=== PATIENT | female | born 1980 | race African-American/Black ===

== ENCOUNTER → 2016-09-12 | Day surgery (SDC) | payer BC ==
[~2016-09-12] MED LIST: ALBU8.5H6 INH; FLUT100D IH; FOLI1TAB16 PO; IV RINGERS,LACTATED 1000ML 1,000 ML IV SCH; LIDOCAINE 1% 1 ML SYRINGE. ID PRN; METF500T4 PO; MIDAZOLAM HCL/PF 2 MG/2 ML VIAL. IV PRN; MOME13HF IH; NABU750T PO; OMEP40CA5 PO; PROPOFOL 20 ML IV ONE; PROPOFOL 40 ML IV ONE; SERT50TA PO; TIOT18CA IH; VENTOLIN HFA18 GM INH; fentaNYL PF VIAL 100 MCG/2 ML VIAL IV PRN
--- NOTE | 2016-09-12 08:24 | PDOC1 ---
HISTORY & PHYSICAL H&P Jacoby Stevens 1980 07/25/2016 03:50 PM 04/09 [facility] PATIENTS [facility] [address] [place] [address]. [phone] Patient: Jacoby Stevens Date of : 1980 Date: 07/25/2016 3:50 PM Historian: self Visit Type: Office Visit This 35 year old female presents for Rectal bleeding and Upper respiratory Infection. History of Present Illness: 1. Rectal bleeding Quality: BRBPR w/ bowel movement, BRBPR w/out bowel movement and wipe-type. Pertinent negatives include abdominal distention, abdominal pain, bloating, change in bowel habits, constipation, diarrhea, nausea, rectal pain, vomiting and weight loss. Additional information: Had incomplete colonoscopy last time. 2. Upper respiratory Infection Patient c/o cough and sneezing for 3 days. Has been feeling tiredness and fatigue. INTAKE COMMENTS: Intake Comments: Nurses Notes: Pt is here today with complaints of Rectal bleeding, pt states the bleeding is heavy. she has to wear a Pad. pt says the bleeding started in the beginning of June pt goes on to say that she has had bloody stools this week as well, pt says she had bleeding for 2 weeks with clotting, pt states it had become so sever that she was seen in the [facility] to be checked out.Pt had EGD/COLONOSCOPY 2014 pt had hemorrhoids. PROBLEM LIST: Problem Description Onset Date Asthma 10/15/2012 Sickle cell trait 07/19/2016 Internal hemorrhoid 02/03/2015 JESSICA (obstructive sleep apnea) 02/11/2015 Constipation by delayed colonic transit 02/03/2015 Asthma attacks lasting more than 24 hours 02/11/2015 PAST MEDICAL/SURGICAL HISTORY (Detailed) Disease/disorder Onset Date Management Date Comments Exp Lap lft s/o D&C Asthma Diabetes Hemorrhoids DIAGNOSTICS HISTORY: Test Ordered Interpretation Result completed EGD 11/25/2014 abnormal Imp: LA Grade B reflux esophagitis. Small hiatus hernia. Normal examined stomach adn duodenum. No specimens collected. 12/17/2014 Colonoscopy 11/25/2014 abnormal Imp: Internal hemorrhoids. No specimens collected. 12/17/2014 Test Ordered Ordering Comments Modifier EGD 11/25/2014 Colonoscopy 11/25/2014 Patient is premenopausal. OBSTETRIC HISTORY: Not currently . Medications (Active): Started Medication Directions Instruction Stopped 06/22/2014 albuterol sulfate HFA 90 mcg/actuation aerosol inhaler inhale 2 puff by Inhalation route every 4 - 6 hours as needed 02/10/2015 Dulera 200 mcg-5 mcg/actuation HFA aerosol inhaler inhale 2 puff by inhalation route 3 times every day in the morning and evening 07/28/2014 Flovent Diskus 100 mcg/actuation powder for inhalation inhale 1 puff (100MCG) by inhalation route 2 times every day 07/10/2016 folic acid 1 mg tablet take 1 tablet by mouth daily 02/10/2015 ipratropium-albuterol 0.5 mg-3 mg(2.5 mg base)/3 mL nebulization soln inhale 3 milliliter by nebulization route 4 times every day 05/05/2015 metformin 500 mg tablet take 1 tablet (500MG) by oral route 2 times every day with morning and evening meals 04/13/2016 nabumetone 750 mg tablet take 1 tablet by oral route 2 times every day 05/05/2015 omeprazole 40 mg capsule,delayed release take 1 capsule by oral route every day before a meal 05/05/2015 Spiriva Respimat 2.5 mcg/actuation solution for inhalation inhale 2 puff by inhalation route every day at the same time each day 02/10/2015 Ventolin HFA 90 mcg/actuation aerosol inhaler inhale 2 puff by Inhalation route every 4 - 6 hours as needed 07/10/2016 Vitamin B-12 500 mcg tablet take 1 tablet by mouth daily 07/25/2016 Zithromax Z-Don 250 mg tablet take 2 tablet by oral route every day for 1 day then 1 tablet (250 mg) by oral route once daily for 4 days 07/29/2016 07/19/2016 Zoloft 50 mg tablet take 1 tablet by oral route 2 times every day Allergies: Ingredient Reaction Medication Name Comment NO KNOWN ALLERGIES REVIEW OF SYSTEMS System Neg/Pos Details Constitutional Negative Chills, fever, malaise and weight loss. ENMT Negative Sore throat. Eyes Negative Double vision. Respiratory Negative Dyspnea and wheezing. Cardio Negative Chest pain and irregular heartbeat/palpitations. GI Positive See HPI. GI Negative Abdominal distention, abdominal pain, bloating, change in bowel habits, constipation, diarrhea, nausea, see HPI, rectal pain and vomiting. Negative Dysuria and hematuria. Endocrine Negative Cold intolerance and heat intolerance. Psych Negative Anxiety. Integumentary Negative Hives and rash. MS Negative Joint pain. Lenin/Lymph Negative Easy bleeding and easy bruising. Allergic/Immuno Negative Animals at home and food allergies. Reproductive Positive The patient is pre-menopausal. VITAL SIGNS Time BP mm/Hg Pulse /min Resp /min Temp F Ht ft Ht in Ht cm Wt lb Wt kg BMI kg/ m2 BSA m2 O2 Sat% 4:24 PM 87 16 98.2 5.0 8.50 173.99 321.60 145.875 48.19 96 Time Measured by 4:24 PM Riddhi Figueroa PHYSICAL EXAM: Exam Findings Details Constitutional Normal Well developed. Eyes Normal Conjunctiva - Right: Normal, Left: Normal. Sclera - Right: Normal, Left: Normal. Nasopharynx Normal Lips/teeth/gums - Normal. Neck Exam Normal Inspection - Normal. Thyroid gland - Normal. Respiratory Normal Inspection - Normal. Auscultation - Normal. Cardiovascular Normal Regular rate and rhythm. No murmurs, gallops, or rubs. Vascular Normal Pulses - Carotids: Normal, Femoral: Normal, Dorsalis pedis: Normal. Abdomen Normal Inspection - Normal. Anterior palpation - No guarding. No abdominal tenderness. No hepatic enlargement. No splenic enlargement. No hernia. No Ascites. Skin Normal Inspection - Normal. Extremity Normal No edema. Psychiatric Normal Oriented to time, place, person, and situation. Appropriate mood and effect. Assessment/Plan # Detail Type Description 1. Assessment Rectal bleeding (K62.5). [place] [facility] [place] Further diagnostic evaluations ordered today include(s) Colonoscopy to be performed today. She is to schedule a follow-up visit with Mike Kwok MD upon completion of work-up 2. Assessment Acute laryngopharyngitis (J06.0). Patient Plan Z- pack as directed. Electronically signed by: Mike Kwok MD 07/25/2016 04:59 PM Document generated by: Mike Kwok 07/25/2016 04:59 PM Rose Lee MD, Family Practice; Jaylen Alves MD Internal Medicine; Juany Doll MD, Internal Medicine; Farzad Kwok MD Internal Medicine; Mike Kwok MD, Gastroenterology; Tejas Lizama MD, Rheumatology, S. Alessandro Rojas, Physical Medicine/Rehab Juan Gillis ENVIRONMENTAL SAMPLING TECHNICIAN ------ 09/12/16 Patient seen and examined. No change in H&P MIKE KWOK MD Sep 12, 2016 08:24
[2016-09-12 08:55] LABS: NEG OBC UR NEG; POS OBC UR POS
--- NOTE | 2016-09-12 10:18 | PDOC4 ---
GI OP Report - Dr. Andrew Date/Time DATE: 09/12/16 TIME: 10:17 Attending Physician Mike Andrew MD Referring Physician Indications Rectal bleeding Pre-Op See the Anesthesia note for documentation of the administered medications Procedures Colonoscopy Findings - Internal hemorrhoids. - The examination was otherwise normal on direct and retroflexion views. - No specimens collected. Plan - Discharge patient to home. - Patient has a contact number available for emergencies. The signs and symptoms of potential delayed complications were discussed with the patient. Return to normal activities tomorrow. Written discharge instructions were provided to the patient. - Resume regular diet. - Continue present medications. - No repeat colonoscopy due to age. - Return to my office as needed. MIKE ANDREW MD Sep 12, 2016 10:18
[2016-09-12 10:30] VITALS: BP 121/64
== END | disposition home or self-care (01) ==
LOC: SURG 07:59
PROVIDERS: ATTEND Internal Medicine Gastroenterology
DX: K64.1 Second degree hemorrhoids (principal); E11.9 Type 2 diabetes mellitus without complications; J45.909 Unspecified asthma, uncomplicated; Z86.39 Personal history of other endocrine, nutritional and metabolic disease
CPT/HCPCS: 45378; 81025; 82962; J2704

== ENCOUNTER 2017-01-15 11:18 | Inpatient (IN) | payer BC ==
[~2017-01-15] VITALS: Ht 175.3 cm; Wt 145.1 kg
[~2017-01-15 11:18] MED LIST changes: -IV RINGERS,LACTATED 1000ML 1,000 ML IV SCH; -LIDOCAINE 1% 1 ML SYRINGE. ID PRN; -MIDAZOLAM HCL/PF 2 MG/2 ML VIAL. IV PRN; -PROPOFOL 20 ML IV ONE; -PROPOFOL 40 ML IV ONE; -fentaNYL PF VIAL 100 MCG/2 ML VIAL IV PRN
[2017-01-15] MEDS ORDERED: IV NORMAL SALINE 1000ML BAG 1,000 ML IV ONE (12:00)
[2017-01-15] MEDS ORDERED: KETOROLAC 30 MG/ML INJ. IV ONE (12:00)
[2017-01-15] MEDS ORDERED: ONDANSETRON PF 4 MG/2 ML VIAL. IV ONE (12:00)
[2017-01-15 12:29] LABS: BILIRUBIN,URINE NEGATIVE (NEG); GLUCOSE,URINE NEGATIVE (NEG); NITRITE,URINE NEGATIVE (NEG); PROTEIN,URINE NEGATIVE (NEG-TRACE); UROBILINOGEN,URINE 0.2 mg/dL (0.2 mg/dL)
[2017-01-15 12:30] LABS: BARBITURATES NEG (NEG); BENZODIAZEPINES NEG (NEG); CANNABINOIDS NEG (NEG); COCAINE NEG (NEG); METHADONE NEG (NEG); OPIATES NEG (NEG); PHENCYCLIDINE NEG (NEG)
[2017-01-15 12:36] LABS: BASO % 1 % (0-3); EOS % 2 % (0-3); HEMATOCRIT 34.5 % (36.0-47.0); HEMOGLOBIN 11.1 g/dL (12.0-15.5); LYMPH # 2.9 x10^3/uL (1.0-4.8); LYMPH % 41 % (24-48); MEAN CORPUSCULAR HEMOGLOBIN 22 pg (25-35); MEAN CORPUSCULAR HGB CONC 32 g/dL (31-37); MEAN CORPUSCULAR VOLUME 70 fL (79-100); MONO % 9 % (0-9); NEUT % 48 % (31-73); PLATELET COUNT 246 x10^3/uL (140-400); RED BLOOD COUNT 4.96 x10^6/uL (3.50-5.40); RED CELL DISTRIBUTION WIDTH 17.8 % (11.5-14.5); WHITE BLOOD COUNT 7.2 x10^3/uL (4.0-11.0)
[2017-01-15 12:39] LABS: NEG OBC FOB NEG; POS OBC FOB POS
[2017-01-15 12:45] LABS: CREATININE 1.1 mg/dL (0.6-1.0); GFR 68.8; POTASSIUM 3.7 mmol/L (3.5-5.1)
[2017-01-15 12:52] LABS: ALBUMIN 3.1 g/dL (3.4-5.0); ALBUMIN/GLOBULIN RATIO 0.7 (1.0-1.7); TOTAL BILIRUBIN 0.3 mg/dL (0.2-1.0); TOTAL PROTEIN 7.8 g/dL (6.4-8.2)
[2017-01-15 12:56] LABS: BACTERIA,URINE MOD /HPF (0-FEW); SQUAMOUS EPITHELIAL CELL,UR MANY /LPF
[2017-01-15] MEDS ORDERED: IOHEXOL 300 MG/ML 75 ML VIAL IV ONE (13:15)
[2017-01-15] MEDS ORDERED: CONTRAST GIVEN MC PRN (13:30)
--- NOTE | 2017-01-15 14:01 | RAD ---
Indication rectal pain. Bleeding. Axial images of the abdomen and pelvis were obtained. IV contrast, 75 cc of Omnipaque 300 was administered. No oral contrast was administered. Note is made of a previous exam 11/05/2014. The lung bases are clear. The liver and spleen appear unremarkable and the gallbladder appears grossly normal. No pancreatic abnormality is seen. There are no adrenal masses and the kidneys appear normal. No mass inflammatory process or acute finding in the abdomen is seen. In the pelvis no focal mass or inflammatory process is seen. Bony structures appear unremarkable. IMPRESSION: No acute or significant finding seen in the abdomen or pelvis
--- NOTE | 2017-01-15 14:52 | PHYS DOC ---
Past Medical History Past Medical History: Asthma, Bronchitis, Diabetes-Type II Past Surgical History: Other Additional Past Surgical Histo: Left ovary & fallopian tube, L side cyst removal from ovary, hemorrhroidect Alcohol Use: Occasionally Drug Use: None Adult General Chief Complaint Chief Complaint: HEMORRHOIDS [facility] HPI Patient is a 36 year old female with history of diabetes type 2, bronchitis, asthma, who presents today with 10 out of 10 sharp rectal pain that began this morning from chronic hemorrhoids. Patient states she had hemorrhoid surgery a few years ago but to suppress she still has some hemorrhoids. Patient denies any chance she is constipated. Denies any nausea vomiting. Denies any abdominal pain. She states she called her GI doctor who requested that come to the emergency room. Patient is tearful. Review of Systems Review of Systems Constitutional: Denies fever or chills [] Eyes: Denies change in visual acuity, redness, or eye pain [] HENT: Denies nasal congestion or sore throat [] Respiratory: Denies cough or shortness of breath [] Cardiovascular: No additional information not addressed in HPI [] GI: Rectal pain. Denies abdominal pain, nausea, vomiting, bloody stools or diarrhea [] : Denies dysuria or hematuria [] Musculoskeletal: Denies back pain or joint pain [] Integument: Denies rash or skin lesions [] Neurologic: Denies headache, focal weakness or sensory changes [] Endocrine: Denies polyuria or polydipsia [] Current Medications Current Medications Current Medications Medications (Trade) Dose Ordered Sig/Kate Start Time Stop Time Status Last Admin Dose Admin Info (Do NOT chart on this entry -- for MONITORING) 1 each PRN DAILY PRN 01/15/17 13:30 01/17/17 13:29 Iohexol (Omnipaque 300 Mg/ml) 75 ml 1X ONCE 01/15/17 13:15 01/15/17 13:16 DC 01/15/17 13:29 75 ML Ketorolac Tromethamine (Toradol) 30 mg 1X ONCE 01/15/17 12:00 01/15/17 12:02 DC 01/15/17 12:23 30 MG Ondansetron HCl (Zofran) 4 mg 1X ONCE 01/15/17 12:00 01/15/17 12:02 DC 01/15/17 12:23 4 MG Sodium Chloride 1,000 ml @ 1,000 mls/hr 1X ONCE 01/15/17 12:00 01/15/17 12:59 DC 01/15/17 12:23 1,000 MLS/HR Allergies Allergies Allergies Coded Allergies Type Severity Reaction Last Updated Verified No Known Drug Allergies 09/12/16 No Physical Exam Physical Exam Constitutional: Well developed, well nourished, no acute distress, non-toxic appearance. [] HENT: Normocephalic, atraumatic, bilateral external ears normal, oropharynx moist, no oral exudates, nose normal. [] Eyes: PERRLA, EOMI, conjunctiva normal, no discharge. [] Neck: Normal range of motion, no tenderness, supple, no stridor. [] Cardiovascular:Heart rate regular rhythm, no murmur [] Lungs & Thorax: Bilateral breath sounds clear to auscultation [] Abdomen: Bowel sounds normal, soft, no tenderness, no masses, no pulsatile masses. [] Rectum with the piece size with external hemorrhoid. The hemorrhoid is not thrombosed. Internal rectal exam was very uncomfortable proficient not feasible. Positive Hemoccult. Skin: Warm, dry, no erythema, no rash. [] Back: No tenderness, no CVA tenderness. [] Extremities: No tenderness, no cyanosis, no clubbing, ROM intact, no edema. [] Neurologic: Alert and oriented X 3, normal motor function, normal sensory function, no focal deficits noted. [] Psychologic: Affect normal, judgement normal, mood normal. [] Current Patient Data Vital Signs Vital Signs Date Time Temp Pulse Resp B/P (MAP) Pulse Ox O2 Delivery O2 Flow Rate FiO2 01/15/17 11:31 99.1 75 18 97 Room Air 99.1 Lab Values Laboratory Tests Test 01/15/17 11:40 01/15/17 12:07 01/15/17 12:13 01/15/17 12:20 Stool Occult Blood Positive (NEG) Urine Collection Type Unknown Urine Color Yellow Urine Clarity Clear Urine pH 6.0 Urine Specific [place] 1.020 Urine Protein Negative mg/dL (NEG-TRACE) Urine Glucose (UA) Negative mg/dL (NEG) Urine Ketones (Stick) Negative mg/dL (NEG) Urine Blood Moderate (NEG) Urine Nitrite Negative (NEG) Urine Bilirubin Negative (NEG) Urine Urobilinogen Dipstick 0.2 mg/dL (0.2 mg/dL) Urine Leukocyte Esterase Trace (NEG) Urine RBC 1-2 /HPF (0-2) Urine WBC 1-4 /HPF (0-4) Urine Squamous Epithelial Cells Many /LPF Urine Bacteria Mod /HPF (0-FEW) Urine Mucus Mod /LPF Urine Opiates Screen Neg (NEG) Urine Methadone Screen Neg (NEG) Urine Barbiturates Neg (NEG) Urine Phencyclidine Screen Neg (NEG) Urine Amphetamine/Methamphetamine Neg (NEG) Urine Benzodiazepines Screen Neg (NEG) Urine Cocaine Screen Neg (NEG) Urine Cannabinoids Screen Neg (NEG) Urine Ethyl Alcohol Neg (NEG) POC Urine HCG, Qualitative Hcg negative (Negative) White Blood Count 7.2 x10^3/uL (4.0-11.0) Red Blood Count 4.96 x10^6/uL (3.50-5.40) Hemoglobin 11.1 g/dL (12.0-15.5) L Hematocrit 34.5 % (36.0-47.0) L Mean Corpuscular Volume 70 fL (79-100) L Mean Corpuscular Hemoglobin 22 pg (25-35) L Mean Corpuscular Hemoglobin Concent 32 g/dL (31-37) Red Cell Distribution Width 17.8 % (11.5-14.5) H Platelet Count 246 x10^3/uL (140-400) Neutrophils (%) (Auto) 48 % (31-73) Lymphocytes (%) (Auto) 41 % (24-48) Monocytes (%) (Auto) 9 % (0-9) Eosinophils (%) (Auto) 2 % (0-3) Basophils (%) (Auto) 1 % (0-3) Neutrophils # (Auto) 3.5 x10^3uL (1.8-7.7) Lymphocytes # (Auto) 2.9 x10^3/uL (1.0-4.8) Monocytes # (Auto) 0.6 x10^3/uL (0.0-1.1) Eosinophils # (Auto) 0.1 x10^3/uL (0.0-0.7) Basophils # (Auto) 0.0 x10^3/uL (0.0-0.2) Platelet Estimate Pending Sodium Level 141 mmol/L (136-145) Potassium Level 3.7 mmol/L (3.5-5.1) Chloride Level 106 mmol/L (98-107) Carbon Dioxide Level 27 mmol/L (21-32) Anion Gap 8 (6-14) Blood Urea Nitrogen 13 mg/dL (7-20) Creatinine 1.1 mg/dL (0.6-1.0) H Estimated GFR (Cockcroft-Gault) 68.8 BUN/Creatinine Ratio 12 (6-20) Glucose Level 93 mg/dL (70-99) Calcium Level 9.0 mg/dL (8.5-10.1) Total Bilirubin 0.3 mg/dL (0.2-1.0) Aspartate Amino Transferase (AST) 18 U/L (15-37) Alanine Aminotransferase (ALT) 21 U/L (14-59) Alkaline Phosphatase 68 U/L (46-116) Total Protein 7.8 g/dL (6.4-8.2) Albumin 3.1 g/dL (3.4-5.0) L Albumin/Globulin Ratio 0.7 (1.0-1.7) L Lipase 96 U/L (73-393) Ethyl Alcohol Level < 10 mg/dL (0-10) Laboratory Tests 01/15/17 12:20 Laboratory Tests 01/15/17 12:20 EKG EKG [] Radiology/Procedures Radiology/Procedures [] Course & Med Decision Making Course & Med Decision Making Pertinent Labs and Imaging studies reviewed. (See chart for details) This is a 36-year-old female patient with history of hemorrhoids who presents today with rectal pain since this morning. CBC with a hemoglobin of 11.1, HCT 34.5. Physical exam patient is positive for a peanut sized non thrombosed rectal hemorrhoid. patient has continued to complain about pain in the ED. We have given her Toradol. She states she is still having rectal pain. CT of the abdomen and pelvic was negative for any acute findings. 14:[address] Doll who requested we admit patient and consult general surgery. Patient was admitted in stable condition. Dragon Disclaimer Dragon Disclaimer This electronic medical record was generated, in whole or in part, using a voice recognition dictation system. Departure Departure Impression: Primary Impression: Rectal pain Disposition: ADMITTED INPATIENT Condition: STABLE Referrals: MILE ROCHE (PCP) JAGRUTI ROLDAN APRN Jan 15, 2017 14:52
[2017-01-15] MEDS ORDERED: ACETAMINOPHEN 325 MG TABLET. PO PRN (16:00)
[2017-01-15] MEDS ORDERED: ONDANSETRON PF 4 MG/2 ML VIAL. IV PRN (16:00)
[2017-01-15 16:09] LABS: ANISOCYTOSIS SLIGHT; HYPOCHROMIA MOD; MICROCYTOSIS MARKED; PLT ESTIMATE ADEQUATE (ADEQUATE); POLYCHROMASIA SLIGHT
[2017-01-15] MEDS: KETOROLAC 15 MG/ML VIAL. IV PRN ×2 (17:55→23:56)
[2017-01-15] MEDS: HYDROCORTISONE ACETATE 25 MG SUPP.RECT PR PRN (17:55)
[2017-01-15] MEDS: HYDROcodone/APAP 5/325MG 1 TAB TABLET PO PRN (18:06)
[2017-01-15] MEDS ORDERED: ALBUTEROL SULFATE 2.5 MG/3 ML NEBU. NEB PRN ×2 (18:30→18:45)
[2017-01-15 18:41] VITALS: BP 122/51
[2017-01-15 19:00] VITALS: BP 108/69
[2017-01-15] MEDS ORDERED: ALBUTEROL SULFATE 8GM INHALER. INH SCH (20:00)
[2017-01-15] MEDS: BUDESONIDE 0.5 MG/2 ML NEBU. NEB SCH (20:14)
[2017-01-15] MEDS: IPRATRPIUM/ALBUTEROL 0.5/2.5MG 3 ML NEBU. NEB SCH (20:14)
[2017-01-15] MEDS ORDERED: NON FORMULARY ITEM (Mometasone/Formoterol (Dulera 200 Mcg/5 Mcg Inhaler) 2 PUFF) IH SCH (21:00)
[2017-01-15] MEDS ORDERED: NON FORMULARY ITEM (Fluticasone Propionate (Flovent 100MCG Diskus) 1 PUFF) IH SCH (21:00)
[2017-01-15] MEDS ORDERED: NON FORMULARY ITEM (Albuterol Sulfate (Ventolin Hfa Inhaler) 2 PUFF) INH SCH (21:00)
[2017-01-15 23:00] VITALS: BP 115/64
[2017-01-15] MEDS: IV NORMAL SALINE 1000ML BAG 1,000 ML IV SCH (23:27)
[2017-01-16] MEDS: HYDROcodone/APAP 5/325MG 1 TAB TABLET PO PRN ×4 (01:52→21:52)
[2017-01-16 03:00] VITALS: BP_SYST 118
[2017-01-16 04:11] LABS: BASO % 1 % (0-3); EOS % 3 % (0-3); HEMATOCRIT 30.6 % (36.0-47.0); HEMOGLOBIN 9.8 g/dL (12.0-15.5); LYMPH # 3.2 x10^3/uL (1.0-4.8); LYMPH % 47 % (24-48); MEAN CORPUSCULAR HEMOGLOBIN 23 pg (25-35); MEAN CORPUSCULAR HGB CONC 32 g/dL (31-37); MEAN CORPUSCULAR VOLUME 71 fL (79-100); MONO % 9 % (0-9); NEUT % 40 % (31-73); PLATELET COUNT 201 x10^3/uL (140-400); RED BLOOD COUNT 4.34 x10^6/uL (3.50-5.40); RED CELL DISTRIBUTION WIDTH 18.1 % (11.5-14.5); WHITE BLOOD COUNT 6.8 x10^3/uL (4.0-11.0)
[2017-01-16 05:05] LABS: CALCIUM 8.3 mg/dL (8.5-10.1); CREATININE 1.1 mg/dL (0.6-1.0); GFR 68.8; POTASSIUM 3.7 mmol/L (3.5-5.1)
[2017-01-16] MEDS: KETOROLAC 15 MG/ML VIAL. IV PRN ×2 (06:02→13:21)
[2017-01-16 07:00] VITALS: BP 112/66
[2017-01-16] MEDS: IPRATRPIUM/ALBUTEROL 0.5/2.5MG 3 ML NEBU. NEB SCH ×4 (07:05→21:34)
[2017-01-16] MEDS: BUDESONIDE 0.5 MG/2 ML NEBU. NEB SCH ×2 (07:05→21:34)
[2017-01-16] MEDS: PANTOPRAZOLE 40 MG TABLET.DR. PO SCH (08:26)
[2017-01-16] MEDS: IV NORMAL SALINE 1000ML BAG 1,000 ML IV SCH (08:27)
[2017-01-16] MEDS: FOLIC ACID 1 MG TABLET. PO SCH (08:27)
[2017-01-16] MEDS: SERTRALINE 50 MG TABLET. PO SCH (08:27)
[2017-01-16] MEDS ORDERED: NON FORMULARY ITEM (Tiotropium Bromide (Spiriva) 2 INH) IH SCH (09:00)
[2017-01-16] MEDS ORDERED: DEXTROSE 50% 25 GM / 50ML DISP.SYRIN. IV PRN (09:30)
--- NOTE | 2017-01-16 09:35 | PDOC ---
Provider Note Provider Note Pt seen .H&P dictated. #[id number] JERRELL GOMEZ MD Jan 16, 2017 09:35
--- NOTE | 2017-01-16 10:15 | HP ---
ADMIT DATE: 01/15/2017 LOCATION: 420. REASON FOR ADMISSION TO THE HOSPITAL: Hemorrhoids with a lot of pain and not able to ambulate, wanted to have surgery staple. HISTORY OF PRESENT ILLNESS: The patient is a 36-year-old female, patient of Dr. Lee. She has hemorrhoids. She had surgery done a couple of years ago and this comes back again with a lot of pain, discomfort, not able to ambulate and came to the Emergency Room. CT of the abdomen and pelvis negative. Hemoglobin 11. The patient was admitted for pain control. Surgical consult to have surgery done. PAST MEDICAL HISTORY: History of diabetes type 2, asthma, bronchitis. PAST SURGICAL HISTORY: Hemorrhoid surgery; left ovary, fallopian tube and left side cyst removed. ALLERGIES: No known drug allergies. FAMILY HISTORY: Positive for diabetes, hypertension. SOCIAL HISTORY: Denies alcohol, drugs. Social alcohol. MEDICATIONS AT HOME: Metformin twice a day, albuterol 2 puffs 4 times daily, fluticasone twice a day, folic acid daily, Dulera twice a day, omeprazole 40 mg daily, Zoloft 50 mg daily, Spiriva daily. REVIEW OF SYMPTOMS: Denies any nausea, vomiting, associated pain, not able to ambulate. Rest of her system was reviewed and negative. PHYSICAL EXAMINATION: GENERAL: The patient is comfortable now with IV pain medications. VITAL SIGNS: Temperature 99, pulse 75, respirations 18, blood pressure 130/70, 98% on room air. HEENT: Head is atraumatic. Pupils equal. Oral cavity: No congestion. NECK: Supple. Thyroid not enlarged. JVD not elevated. CHEST: Symmetrical. CARDIOVASCULAR: S1, S2. LUNGS: Clear to auscultation. ABDOMEN: Soft, no mass palpable. EXTERNAL GENITALIA: No Yu. RECTAL: Deferred. EXTREMITIES: No calf tenderness, no edema. Pulses 1+. NEUROLOGIC: Cranial nerves intact. Power 5/5 in all extremities. LABORATORY DATA: Shows a stool for occult blood was positive. White count was 7, hemoglobin 11, platelets 246. Electrolytes were sodium 141, potassium 3.7, chloride 106, bicarbonate 27, BUN 13, creatinine 1.1, glucose 93. LFTs were normal. UA was negative. Urine was negative. Urine drug screen was negative and CT of the abdomen and pelvis basically was no acute findings. FINAL IMPRESSION: 1. Severe painful hemorrhoids. 2. Diabetes. 3. Asthma. PLAN: At this time, was admitted to the hospital. Surgery was consulted and fentanyl for pain control and see how she improves. JERRELL GOMEZ MD DR: ANDRIA/elaine JOB#: [id number] / [id number] MILE Munroe
[2017-01-16 11:00] VITALS: BP 112/64
--- NOTE | 2017-01-16 11:40 | PDOC2 ---
SHANNANDANIELLE Val SENIOR CYTOGENETIC TECHNOLOGIST 01/16/17 1140: CONSULT Date of Consult Date of Consult DATE: 01/16/17 TIME: 11:33 Reason for Consult Reason for Consult: hemorrhoids Referring Physician Referring Physician: ER Identification/Chief Complaint Chief Complaint hemorrhoid pain Problems: Source Source: Chart review, Patient History of Present Illness Reason for Visit: Previous hemorrhoide[place] [address] Gama. Re-current hemorrhoids, does report some constipation. Reports this episode began Sunday, hemorrhoid pain and swelling. Reports last stool was sunday, painful. No bleeding. Some fever on Sunday, nausea. Past Medical History Pulmonary: Asthma GI: GERD, Hemorrhoids Psych: Depression Endocrine: Diabetes Past Surgical History Past Surgical History: Other (hemorrhoidectomy, tubual pregancy, ovarian cyst) Family History Family History: Other (noncontributory to current illness ) Social History No ALCOHOL: occassional Drugs: None Lives: Alone Current Problem List Problem List Problems Medical Problems: (1) Rectal pain Status: Acute Current Medications Current Medications Current Medications Sodium Chloride 1,000 ml @ 1,000 mls/hr 1X ONCE IV Last administered on 12:23; Start 01/15/17 at 12:00; Stop 01/15/17 at 12:59; Status DC Ondansetron HCl (Zofran) 4 mg 1X ONCE IV Last administered on 01/15/17 12:23 ; Start 01/15/17 at 12:00; Stop 01/15/17 at 12:02; Status DC Ketorolac Tromethamine (Toradol) 30 mg 1X ONCE IV Last administered on 12:23; Start 01/15/17 at 12:00; Stop 01/15/17 at 12:02; Status DC Iohexol (Omnipaque 300 Mg/ml) 75 ml 1X ONCE IV Last administered on 01/15/17 13:29; Start 01/15/17 at 13:15; Stop 01/15/17 at 13:16; Status DC Info (Do NOT chart on this entry -- for MONITORING) 1 each PRN DAILY PRN MC SEE COMMENTS; Start 01/15/17 at 13:30; Stop 01/17/17 at 13:29 Ondansetron HCl (Zofran) 4 mg PRN Q8HRS PRN IV NAUSEA/VOMITING; Start 01/15/17 at 16:00; Stop 01/16/17 at 15:59 Acetaminophen (Tylenol) 650 mg PRN Q4HRS PRN PO FEVER; Start 01/15/17 at 16:00 ; Stop 01/16/17 at 15:59 Hydrocortisone Acetate (Anucort-Hc) 25 mg PRN Q12HR PRN [place] RECTAL PAIN Last administered on 01/15/17 17:55; Start 01/15/17 at 16:00 Ketorolac Tromethamine (Toradol) 10 mg PRN Q6HRS PRN IV PAIN Last administered on 01/16/17 06:02; Start 01/15/17 at 18:00; Stop 01/20/17 at 17:59 Fentanyl Citrate (Fentanyl 2ml Vial) 12.5 mcg PRN Q3HRS PRN IV PAIN; Start 01/15/17 at 18:00 Acetaminophen/ Hydrocodone Bitart (Lortab 5/325) 1 tab PRN Q6HRS PRN PO PAIN Last administered on 01/16/17 08:26; Start 01/15/17 at 18:00 Albuterol Sulfate (Ventolin Neb Soln) 2.5 mg PRN Q6HRS PRN NEB SHORTNESS OF BREATH; Start 01/15/17 at 18:30; Status Cancel Sodium Chloride 1,000 ml @ 75 mls/hr [id number] IV Last administered on 08:27; Start 01/15/17 at 18:30 Albuterol Sulfate (Ventolin Hfa) 2 puff Q4HRS INH ; Start 01/15/17 at 20:00; Status UNV Folic Acid (Folic Acid) 1 mg DAILY PO Last administered on 01/16/17 08:27; Start 01/16/17 at 09:00 Metformin HCl (Glucophage) 500 mg BIDWMEALS PO ; Start 01/17/17 at 17:00 Sertraline HCl (Zoloft) 50 mg DAILY PO Last administered on 01/16/17 08:27; Start 01/16/17 at 09:00 Non-Formulary Medication 2 puff QID INH ; Start 01/15/17 at 21:00; Status UNV Non-Formulary Medication 1 puff BID IH ; Start 01/15/17 at 21:00; Status UNV Non-Formulary Medication 2 puff BID IH ; Start 01/15/17 at 21:00; Status UNV Pantoprazole Sodium (Protonix) 40 mg DAILYAC PO Last administered on 08:26; Start 01/16/17 at 07:30 Non-Formulary Medication 2 inh DAILY IH ; Start 01/16/17 at 09:00; Status UNV Albuterol/ Ipratropium (Duoneb) 3 ml RTQID NEB Last administered on 01/16/17 11:27; Start 01/15/17 at 20:00 Albuterol Sulfate (Ventolin Neb Soln) 2.5 mg PRN Q4HRS PRN NEB SHORTNESS OF BREATH; Start 01/15/17 at 18:45 Budesonide (Pulmicort) 0.5 mg RTBID NEB Last administered on 01/16/17 07:05; Start 01/15/17 at 20:00 Insulin Aspart (NovoLOG) 0-7 UNITS TIDWMEALS SQ ; Start 01/16/17 at 12:00 Dextrose (Dextrose 50%-Water Syringe) 12.5 gm PRN Q15MIN PRN IV SEE COMMENTS; Start 01/16/17 at 09:30 Active Scripts Active Reported Zoloft (Sertraline Hcl) 50 Mg Tablet 50 Mg PO DAILY Ventolin Hfa Inhaler (Albuterol Sulfate) 18 Gm Hfa.aer.ad 2 Puff INH QID Spiriva (Tiotropium [place]) 18 Mcg Cap.w.dev 2 Inh IH DAILY Omeprazole 40 Mg Capsule.dr 40 Mg PO DAILY Metformin Hcl 500 Mg Tablet 500 Mg PO BIDWMEALS Folic Acid 1 Mg Tablet 1 Mg PO DAILY Flovent 100MCG Diskus (Fluticasone Propionate) 100 Mcg Disk.w.dev 1 Puff IH BID Dulera 200 Mcg/5 Mcg Inhaler (Mometasone/Formoterol) 13 Gm Hfa.aer.ad 2 Puff IH BID Metformin Hcl 500 Mg Tablet 500 Mg PO BIDWMEALS Albuterol Sulfate Hfa Inhaler (Albuterol Sulfate) 8.5 Gm Hfa.aer.ad 2 Puff INH Q4HRS Allergies Allergies: Coded Allergies: No Known Drug Allergies (Unverified , 09/12/16) ROS General: No: Chills, Appetite PSYCHOLOGICAL ROS: No: Anxiety, Depression Eyes: No Blurry vision, No Double vision HEENT: No: Heacaches, Sore Throat Hematological and Lymphatic: No: Bleeding Problems, Blood Clots Respiratory: YES: Cough, Shortness of breath Cardiovascular: No Chest Pain, No Palpitations Gastrointestinal: Yes Constipation, No Abdominal Pain (intermittent low sharp) Genitourinary: No Dysuria, No Hematuria Musculoskeletal: No Joint Pain, No Muscle Pain Neurological: No Impaired Coord/balance, No Memory Loss Skin: Yes Other (see hpi) Physical Exam Physical Exam rectal exam--noted skin tags and a very painful thrombosed hemorrhoid, due to pain no digital exam preformed General: Alert, Oriented X3, Cooperative, No acute distress HEENT: PERRLA, Mucous membr. moist/pink Lungs: Clear to auscultation, Normal air movement Heart: Regular rate, Normal S1, Normal S2 Abdomen: Soft, No tenderness Extremities: No clubbing, No cyanosis Skin: No rashes, No breakdown Neuro: Normal gait, Normal speech Psych/Mental Status: Mental status NL, Mood NL MUSCULOSKELETAL: No deformity, No swelling Vitals VITALS Vital Signs Date Time Temp Pulse Resp B/P (MAP) Pulse Ox O2 Delivery O2 Flow Rate FiO2 01/16/17 11:28 Room Air 01/16/17 07:00 97.9 53 20 112/66 (81) 100 97.9 Labs Labs Laboratory Tests Test 01/15/17 11:40 01/15/17 12:07 01/15/17 12:13 01/15/17 12:20 Stool Occult Blood Positive (NEG) Urine Collection Type Unknown Urine Color Yellow Urine Clarity Clear Urine pH 6.0 Urine Specific [place] 1.020 Urine Protein Negative mg/dL (NEG-TRACE) Urine Glucose (UA) Negative mg/dL (NEG) Urine Ketones (Stick) Negative mg/dL (NEG) Urine Blood Moderate (NEG) Urine Nitrite Negative (NEG) Urine Bilirubin Negative (NEG) Urine Urobilinogen Dipstick 0.2 mg/dL (0.2 mg/dL) Urine Leukocyte Esterase Trace (NEG) Urine RBC 1-2 /HPF (0-2) Urine WBC 1-4 /HPF (0-4) Urine Squamous Epithelial Cells Many /LPF Urine Bacteria Mod /HPF (0-FEW) Urine Mucus Mod /LPF Urine Opiates Screen Neg (NEG) Urine Methadone Screen Neg (NEG) Urine Barbiturates Neg (NEG) Urine Phencyclidine Screen Neg (NEG) Urine Amphetamine/Methamphetamine Neg (NEG) Urine Benzodiazepines Screen Neg (NEG) Urine Cocaine Screen Neg (NEG) Urine Cannabinoids Screen Neg (NEG) Urine Ethyl Alcohol Neg (NEG) Bedside Urine HCG, Qualitative Hcg negative (Negative) White Blood Count 7.2 x10^3/uL (4.0-11.0) Red Blood Count 4.96 x10^6/uL (3.50-5.40) Hemoglobin 11.1 g/dL (12.0-15.5) Hematocrit 34.5 % (36.0-47.0) Mean Corpuscular Volume 70 fL (79-100) Mean Corpuscular Hemoglobin 22 pg (25-35) Mean Corpuscular Hemoglobin Concent 32 g/dL (31-37) Red Cell Distribution Width 17.8 % (11.5-14.5) Platelet Count 246 x10^3/uL (140-400) Neutrophils (%) (Auto) 48 % (31-73) Lymphocytes (%) (Auto) 41 % (24-48) Monocytes (%) (Auto) 9 % (0-9) Eosinophils (%) (Auto) 2 % (0-3) Basophils (%) (Auto) 1 % (0-3) Neutrophils # (Auto) 3.5 x10^3uL (1.8-7.7) Lymphocytes # (Auto) 2.9 x10^3/uL (1.0-4.8) Monocytes # (Auto) 0.6 x10^3/uL (0.0-1.1) Eosinophils # (Auto) 0.1 x10^3/uL (0.0-0.7) Basophils # (Auto) 0.0 x10^3/uL (0.0-0.2) Platelet Estimate Adequate (ADEQUATE) Polychromasia Slight Hypochromasia Mod Anisocytosis Slight Microcytosis Marked Sodium Level 141 mmol/L (136-145) Potassium Level 3.7 mmol/L (3.5-5.1) Chloride Level 106 mmol/L (98-107) Carbon Dioxide Level 27 mmol/L (21-32) Anion Gap 8 (6-14) Blood Urea Nitrogen 13 mg/dL (7-20) Creatinine 1.1 mg/dL (0.6-1.0) Estimated GFR (Cockcroft-Gault) 68.8 BUN/Creatinine Ratio 12 (6-20) Glucose Level 93 mg/dL (70-99) Calcium Level 9.0 mg/dL (8.5-10.1) Total Bilirubin 0.3 mg/dL (0.2-1.0) Aspartate Amino Transf (AST/SGOT) 18 U/L (15-37) Alanine Aminotransferase (ALT/SGPT) 21 U/L (14-59) Alkaline Phosphatase 68 U/L (46-116) Total Protein 7.8 g/dL (6.4-8.2) Albumin 3.1 g/dL (3.4-5.0) Albumin/Globulin Ratio 0.7 (1.0-1.7) Lipase 96 U/L (73-393) Ethyl Alcohol Level < 10 mg/dL (0-10) Test 01/16/17 03:30 White Blood Count 6.8 x10^3/uL (4.0-11.0) Red Blood Count 4.34 x10^6/uL (3.50-5.40) Hemoglobin 9.8 g/dL (12.0-15.5) Hematocrit 30.6 % (36.0-47.0) Mean Corpuscular Volume 71 fL (79-100) Mean Corpuscular Hemoglobin 23 pg (25-35) Mean Corpuscular Hemoglobin Concent 32 g/dL (31-37) Red Cell Distribution Width 18.1 % (11.5-14.5) Platelet Count 201 x10^3/uL (140-400) Neutrophils (%) (Auto) 40 % (31-73) Lymphocytes (%) (Auto) 47 % (24-48) Monocytes (%) (Auto) 9 % (0-9) Eosinophils (%) (Auto) 3 % (0-3) Basophils (%) (Auto) 1 % (0-3) Neutrophils # (Auto) 2.8 x10^3uL (1.8-7.7) Lymphocytes # (Auto) 3.2 x10^3/uL (1.0-4.8) Monocytes # (Auto) 0.6 x10^3/uL (0.0-1.1) Eosinophils # (Auto) 0.2 x10^3/uL (0.0-0.7) Basophils # (Auto) 0.0 x10^3/uL (0.0-0.2) Sodium Level 141 mmol/L (136-145) Potassium Level 3.7 mmol/L (3.5-5.1) Chloride Level 107 mmol/L (98-107) Carbon Dioxide Level 29 mmol/L (21-32) Anion Gap 5 (6-14) Blood Urea Nitrogen 15 mg/dL (7-20) Creatinine 1.1 mg/dL (0.6-1.0) Estimated GFR (Cockcroft-Gault) 68.8 Glucose Level 101 mg/dL (70-99) Calcium Level 8.3 mg/dL (8.5-10.1) Laboratory Tests Test 01/15/17 11:40 01/15/17 12:07 01/15/17 12:13 01/15/17 12:20 Stool Occult Blood Positive (NEG) Urine Collection Type Unknown Urine Color Yellow Urine Clarity Clear Urine pH 6.0 Urine Specific [place] 1.020 Urine Protein Negative mg/dL (NEG-TRACE) Urine Glucose (UA) Negative mg/dL (NEG) Urine Ketones (Stick) Negative mg/dL (NEG) Urine Blood Moderate (NEG) Urine Nitrite Negative (NEG) Urine Bilirubin Negative (NEG) Urine Urobilinogen Dipstick 0.2 mg/dL (0.2 mg/dL) Urine Leukocyte Esterase Trace (NEG) Urine RBC 1-2 /HPF (0-2) Urine WBC 1-4 /HPF (0-4) Urine Squamous Epithelial Cells Many /LPF Urine Bacteria Mod /HPF (0-FEW) Urine Mucus Mod /LPF Urine Opiates Screen Neg (NEG) Urine Methadone Screen Neg (NEG) Urine Barbiturates Neg (NEG) Urine Phencyclidine Screen Neg (NEG) Urine Amphetamine/Methamphetamine Neg (NEG) Urine Benzodiazepines Screen Neg (NEG) Urine Cocaine Screen Neg (NEG) Urine Cannabinoids Screen Neg (NEG) Urine Ethyl Alcohol Neg (NEG) Bedside Urine HCG, Qualitative Hcg negative (Negative) White Blood Count 7.2 x10^3/uL (4.0-11.0) Red Blood Count 4.96 x10^6/uL (3.50-5.40) Hemoglobin 11.1 g/dL (12.0-15.5) Hematocrit 34.5 % (36.0-47.0) Mean Corpuscular Volume 70 fL (79-100) Mean Corpuscular Hemoglobin 22 pg (25-35) Mean Corpuscular Hemoglobin Concent 32 g/dL (31-37) Red Cell Distribution Width 17.8 % (11.5-14.5) Platelet Count 246 x10^3/uL (140-400) Neutrophils (%) (Auto) 48 % (31-73) Lymphocytes (%) (Auto) 41 % (24-48) Monocytes (%) (Auto) 9 % (0-9) Eosinophils (%) (Auto) 2 % (0-3) Basophils (%) (Auto) 1 % (0-3) Neutrophils # (Auto) 3.5 x10^3uL (1.8-7.7) Lymphocytes # (Auto) 2.9 x10^3/uL (1.0-4.8) Monocytes # (Auto) 0.6 x10^3/uL (0.0-1.1) Eosinophils # (Auto) 0.1 x10^3/uL (0.0-0.7) Basophils # (Auto) 0.0 x10^3/uL (0.0-0.2) Platelet Estimate Adequate (ADEQUATE) Polychromasia Slight Hypochromasia Mod Anisocytosis Slight Microcytosis Marked Sodium Level 141 mmol/L (136-145) Potassium Level 3.7 mmol/L (3.5-5.1) Chloride Level 106 mmol/L (98-107) Carbon Dioxide Level 27 mmol/L (21-32) Anion Gap 8 (6-14) Blood Urea Nitrogen 13 mg/dL (7-20) Creatinine 1.1 mg/dL (0.6-1.0) Estimated GFR (Cockcroft-Gault) 68.8 BUN/Creatinine Ratio 12 (6-20) Glucose Level 93 mg/dL (70-99) Calcium Level 9.0 mg/dL (8.5-10.1) Total Bilirubin 0.3 mg/dL (0.2-1.0) Aspartate Amino Transf (AST/SGOT) 18 U/L (15-37) Alanine Aminotransferase (ALT/SGPT) 21 U/L (14-59) Alkaline Phosphatase 68 U/L (46-116) Total Protein 7.8 g/dL (6.4-8.2) Albumin 3.1 g/dL (3.4-5.0) Albumin/Globulin Ratio 0.7 (1.0-1.7) Lipase 96 U/L (73-393) Ethyl Alcohol Level < 10 mg/dL (0-10) Test 01/16/17 03:30 White Blood Count 6.8 x10^3/uL (4.0-11.0) Red Blood Count 4.34 x10^6/uL (3.50-5.40) Hemoglobin 9.8 g/dL (12.0-15.5) Hematocrit 30.6 % (36.0-47.0) Mean Corpuscular Volume 71 fL (79-100) Mean Corpuscular Hemoglobin 23 pg (25-35) Mean Corpuscular Hemoglobin Concent 32 g/dL (31-37) Red Cell Distribution Width 18.1 % (11.5-14.5) Platelet Count 201 x10^3/uL (140-400) Neutrophils (%) (Auto) 40 % (31-73) Lymphocytes (%) (Auto) 47 % (24-48) Monocytes (%) (Auto) 9 % (0-9) Eosinophils (%) (Auto) 3 % (0-3) Basophils (%) (Auto) 1 % (0-3) Neutrophils # (Auto) 2.8 x10^3uL (1.8-7.7) Lymphocytes # (Auto) 3.2 x10^3/uL (1.0-4.8) Monocytes # (Auto) 0.6 x10^3/uL (0.0-1.1) Eosinophils # (Auto) 0.2 x10^3/uL (0.0-0.7) Basophils # (Auto) 0.0 x10^3/uL (0.0-0.2) Sodium Level 141 mmol/L (136-145) Potassium Level 3.7 mmol/L (3.5-5.1) Chloride Level 107 mmol/L (98-107) Carbon Dioxide Level 29 mmol/L (21-32) Anion Gap 5 (6-14) Blood Urea Nitrogen 15 mg/dL (7-20) Creatinine 1.1 mg/dL (0.6-1.0) Estimated GFR (Cockcroft-Gault) 68.8 Glucose Level 101 mg/dL (70-99) Calcium Level 8.3 mg/dL (8.5-10.1) Assessment/Plan Assessment/Plan thrombosed hemorrhoid, painful on exam Obesity BMI 47.3, DM, sleep apnea, asthma will review with JOANNA Duque MD 01/17/17 0814: CONSULT Allergies Allergies: Coded Allergies: No Known Drug Allergies (Unverified , 09/12/16) Assessment/Plan Assessment/Plan Patient seen and examined by me. Complains of painful mass at the anus. Some blood with BM. Thrombosed hemorrhoid plan excision. Agree with Shannan's assessment and plan. DANIELLE HUNG APRN Jan 16, 2017 11:40 JOANNA GAMA MD Jan 17, 2017 08:14
[2017-01-16] MEDS: INSULIN ASPART 300 UNITS/3 ML INSULN.PEN SQ SCH ×2 (12:00→17:00)
[2017-01-16] MEDS: fentaNYL PF VIAL 100 MCG/2 ML VIAL IV PRN (13:21)
[2017-01-16] MEDS ORDERED: FLU VACC QS2017-18 (36MOS+)/PF 0.5 ML SYRINGE. VAX IM ONE (15:00)
[2017-01-16 15:50] VITALS: BP 116/65
[2017-01-16 19:35] VITALS: BP 125/67
[2017-01-16 23:46] VITALS: BP 117/58
[2017-01-17] VITALS (14 sets, daily range): BP systolic 106–134; BP diastolic 52–80
[2017-01-17] MEDS: HYDROCORTISONE ACETATE 25 MG SUPP.RECT PR PRN (03:03)
[2017-01-17] MEDS: IV NORMAL SALINE 1000ML BAG 1,000 ML IV SCH ×2 (03:04→13:24)
[2017-01-17] MEDS: HYDROcodone/APAP 5/325MG 1 TAB TABLET PO PRN ×2 (03:40→20:12)
[2017-01-17] MEDS ORDERED: PROCHLORPERAZINE 10 MG/2 ML VIAL. IV PRN (07:00)
[2017-01-17] MEDS ORDERED: IV RINGERS,LACTATED 1000ML 1,000 ML IV SCH (07:00)
[2017-01-17] MEDS ORDERED: ONDANSETRON PF 4 MG/2 ML VIAL. IV PRN (07:00)
[2017-01-17] MEDS ORDERED: fentaNYL PF VIAL 100 MCG/2 ML VIAL IV PRN (07:00)
[2017-01-17] MEDS ORDERED: MORPHINE SULFATE 2 MG/ML DISP.SYRIN. IV PRN (07:00)
[2017-01-17] MEDS ORDERED: LIDOCAINE 1% PF 2 ML VIAL. ID PRN (07:00)
[2017-01-17] MEDS ORDERED: MIDAZOLAM HCL/PF 2 MG/2 ML VIAL. ONE (07:22)
[2017-01-17] MEDS ORDERED: ROCURONIUM 100 MG/10 ML VIAL. ONE (07:23)
[2017-01-17] MEDS ORDERED: fentaNYL PF VIAL 250 MCG/5 ML VIAL ONE (07:23)
[2017-01-17] MEDS: BUDESONIDE 0.5 MG/2 ML NEBU. NEB SCH ×2 (08:00→20:22)
[2017-01-17] MEDS: INSULIN ASPART 300 UNITS/3 ML INSULN.PEN SQ SCH ×3 (08:00→17:00)
[2017-01-17] MEDS: IPRATRPIUM/ALBUTEROL 0.5/2.5MG 3 ML NEBU. NEB SCH ×4 (08:00→20:22)
[2017-01-17] MEDS ORDERED: PROPOFOL 20 ML IV ONE (08:20)
[2017-01-17] MEDS ORDERED: DEXAMETHASONE SOD PHOS 20 MG/5 ML VIAL. ONE (08:20)
[2017-01-17] MEDS ORDERED: LIDOCAINE 2% PF Vial for OR 5 ML VIAL. ONE (08:20)
[2017-01-17] MEDS ORDERED: NEOMY/BACITR/POLYMYXIN OINT PACKET. TP ONE (09:12)
[2017-01-17] MEDS ORDERED: BUPIVACAINE-EPI 0.5%-1:200000 50 ML VIAL. ONE (09:12)
[2017-01-17] MEDS: fentaNYL PF VIAL 100 MCG/2 ML VIAL IV PRN ×2 (09:48→11:26)
--- NOTE | 2017-01-17 10:05 | PDOC ---
PROGRESS NOTES Subjective Subjective pt went for surgery Objective Objective Vital Signs Date Time Temp Pulse Resp B/P (MAP) Pulse Ox O2 Delivery O2 Flow Rate FiO2 01/17/17 09:48 16 96 Room Air 01/17/17 03:44 98.3 64 130/80 (97) 98.3 Physical Exam Abdomen: Soft, No tenderness Heart: Regular rate, Normal S1, Normal S2 Extremities: No clubbing, No cyanosis General: Alert, Oriented X3, Cooperative, No acute distress HEENT: PERRLA, Mucous membr. moist/pink Lungs: Clear to auscultation, Normal air movement MUSCULOSKELETAL: No deformity, No swelling Neuro: Normal gait, Normal speech Psych/Mental Status: Mental status NL, Mood NL Skin: No rashes, No breakdown Diagnosis Problem List Problems Medical Problems: (1) Rectal pain Status: Acute Assessment Assessment Problems Medical Problems: (1) Rectal pain Status: Acute FINAL IMPRESSION: 1. Severe painful hemorrhoids. 2. Diabetes. 3. Asthma. 4.Sleep Apnea PLAN: labs ok pt gone for surgery home today or tomorrow. cpap mask At this time, was admitted to the hospital. Surgery was consulted and fentanyl for pain control and see how she improves. Problems: Plan Plan of Care Problems Medical Problems: (1) Rectal pain Status: Acute Comment Review of Relevant I have reviewed the following items inocencia (where applicable) has been applied. Labs Laboratory Tests Test 01/16/17 12:14 01/16/17 17:01 01/16/17 21:23 01/17/17 07:42 Glucose (Fingerstick) 90 mg/dL (70-99) 123 mg/dL (70-99) 123 mg/dL (70-99) 102 mg/dL (70-99) Medications Current Medications Dexamethasone Sodium Phosphate (Decadron) 20 mg STK-MED ONCE .ROUTE ; Start 02/23 at 08:20; Stop 01/17/17 at 08:21; Status DC Fentanyl Citrate (Fentanyl 2ml Vial) 25 mcg PRN Q5MIN PRN IV MILD PAIN; Start 01/17/17 at 07:00; Stop 01/18/17 at 06:59 Fentanyl Citrate (Fentanyl 2ml Vial) 50 mcg PRN Q5MIN PRN IV MODERATE PAIN Last administered on 01/17/17t 09:48; Start 01/17/17 at 07:00; Stop 01/18/17 at 06:59 Fentanyl Citrate (Fentanyl 5ml Vial) 250 mcg STK-MED ONCE .ROUTE ; Start at 07:23; Stop 01/17/17 at 07:24; Status DC Hydromorphone HCl (Dilaudid) 0.5 mg PRN Q10MIN PRN IV SEV PAIN, Second choice; Start 01/17/17 at 07:00; Stop 01/18/17 at 06:59 Influenza Virus Vaccine Quadrival (Fluarix Quad [id number] Syringe) 0.5 ml ONCE ONCE VAX IM Last administered on 01/16/17t 15:33; Start 01/16/17 at 15:00; Stop 01/16/17 at 15:04; Status DC Insulin Aspart (NovoLOG) 0-7 UNITS TIDWMEALS SQ ; Start 01/16/17 at 12:00 Lidocaine HCl (Lidocaine Pf 2% Vial) 5 ml STK-MED ONCE .ROUTE ; Start 01/17/17 at 08:20; Stop 01/17/17 at 08:21; Status DC Lidocaine HCl (Xylocaine-Mpf 1% Vial) 2 ml PRN 1X PRN ID IV START; Start 01/17 at 07:00; Stop 01/18/17 at 06:59 Metformin HCl (Glucophage) 500 mg BIDWMEALS PO ; Start 01/17/17 at 17:00 Midazolam HCl (Versed) 2 mg STK-MED ONCE .ROUTE ; Start 01/17/17 at 07:22; Stop 01/17/17 at 07:23; Status DC Morphine Sulfate 1 mg PRN Q10MIN PRN IV SEVERE PAIN; Start 01/17/17 at 07:00; Stop 01/18/17 at 06:59 Ondansetron HCl (Zofran) 4 mg PRN Q6HRS PRN IV NAUSEA/VOMITING; Start at 07:00; Stop 01/18/17 at 06:59 Prochlorperazine Edisylate (Compazine) 5 mg PACU PRN PRN IV NAUSEA, MRX1; Start 01/17/17 at 07:00; Stop 01/18/17 at 06:59 Propofol 20 ml @ As Directed STK-MED ONCE IV ; Start 01/17/17 at 08:20; Stop 01/17/17 at 08:21; Status DC Ringer's Solution 1,000 ml @ 30 mls/hr Q24H IV ; Start 01/17/17 at 07:00; Stop 01/17/17 at 18:59 Rocuronium Rochelle (Zemuron) 100 mg STK-MED ONCE .ROUTE ; Start 01/17/17 at 07: 23; Stop 01/17/17 at 07:24; Status DC Vitals/I & O Vital Sign - Last 24 Hours 01/16/17 01/16/17 01/16/17 01/16/17 11:00 11:28 15:02 15:50 Temp 97.6 98.1 97.6 98.1 Pulse 53 53 Resp 20 20 B/P (MAP) 112/64 (80) 116/65 (82) Pulse Ox 96 97 O2 Delivery Room Air Room Air Room Air Room Air 01/16/17 01/16/17 01/16/17 01/16/17 19:35 20:00 21:35 21:38 Temp 97.5 97.5 Pulse 70 Resp 16 B/P (MAP) 125/67 (86) Pulse Ox 96 98 98 O2 Delivery Room Air Room Air Room Air Room Air 01/16/17 01/16/17 01/17/17 01/17/17 21:52 23:46 03:40 03:44 Temp 98.0 98.3 98.0 98.3 Pulse 69 64 Resp 18 18 18 18 B/P (MAP) 117/58 (77) 130/80 (97) Pulse Ox 98 96 96 94 O2 Delivery Room Air Room Air Room Air Room Air 01/17/17 01/17/17 01/17/17 04:43 07:45 09:48 Resp 18 16 Pulse Ox 94 98 96 O2 Delivery Room Air Room Air Room Air JERRELL GOMEZ MD Jan 17, 2017 10:05
--- NOTE | 2017-01-17 11:03 | PDOC4 ---
Operative Note Operative Note Date 01/17/2017 Preoperative diagnosis: Thrombosed external hemorrhoid Postoperative diagnosis: Same Procedure: Excision of thrombosed hemorrhoid Surgeon: Natan Specimen: Hemorrhoid Dictation: Patient is a 36-year-old female is mated to the hospital with severe rectal pain secondary to a thrombosed hemorrhoid. The procedure of excision thrombosed camera was explained to the patient detail was benefits were also discussed including bleeding infection alternatives to this procedure also discussed the patient seemed understanding gave both verbal and written consent had procedure performed. Patient was taken to the operating room placed in supine position general anesthesia was initiated once patient was asleep and intubated she was placed in low lithotomy her peritoneum was prepped and draped in the usual sterile fashion using Betadine scrub and solution. An area around the external hemorrhoid was injected with quarter percent Marcaine with epinephrine and hemorrhoid was excised using the Harmonic scalpel. Wound was dressed with antibiotic ointment and 4 x 4's and Medipore tape. Patient was waken extubated in the operating room taken to recovery in stable condition all sponge instrument needle counts listed as correct estimated blood loss 5 mL. JOANNA CORRALES MD Jan 17, 2017 11:03
[2017-01-17] MEDS ORDERED: fentaNYL PF VIAL 100 MCG/2 ML VIAL ONE (11:06)
[2017-01-17] MEDS ORDERED: KETOROLAC 30 MG/ML INJ FOR OR. INJ ONE (11:07)
[2017-01-17] MEDS ORDERED: SEVOFLURANE 16 TO 30 MINUTES. IH ONE (11:07)
[2017-01-17] MEDS: HYDROmorphone 2 MG/ML VIAL IV PRN ×2 (11:45→11:55)
[2017-01-17] MEDS ORDERED: diphenhydrAMINE 50 MG/ML VIAL ONE (11:52)
[2017-01-17] MEDS ORDERED: diphenhydrAMINE 50 MG/ML VIAL IVP ONE (12:00)
[2017-01-17] MEDS: PANTOPRAZOLE 40 MG TABLET.DR. PO SCH (15:04)
[2017-01-17] MEDS: FOLIC ACID 1 MG TABLET. PO SCH (15:05)
[2017-01-17] MEDS: SERTRALINE 50 MG TABLET. PO SCH (15:05)
[2017-01-17] MEDS: metFORMIN 500 MG TABLET PO SCH (17:50)
[2017-01-18] MEDS: KETOROLAC 15 MG/ML VIAL. IV PRN ×2 (02:06→15:15)
[2017-01-18] MEDS: IV NORMAL SALINE 1000ML BAG 1,000 ML IV SCH (02:11)
[2017-01-18 03:00] VITALS: BP 122/57
[2017-01-18] MEDS: HYDROcodone/APAP 5/325MG 1 TAB TABLET PO PRN ×2 (03:47→08:56)
[2017-01-18] MEDS: BUDESONIDE 0.5 MG/2 ML NEBU. NEB SCH ×2 (06:54→19:15)
[2017-01-18] MEDS: IPRATRPIUM/ALBUTEROL 0.5/2.5MG 3 ML NEBU. NEB SCH ×4 (06:54→19:15)
[2017-01-18 07:00] VITALS: BP 134/76
[2017-01-18] MEDS: INSULIN ASPART 300 UNITS/3 ML INSULN.PEN SQ SCH ×3 (07:42→17:00)
[2017-01-18] MEDS ORDERED: POLYETHYLENE GLYCOL 3350 17 GM PACKET. PO PRN (07:45)
[2017-01-18] MEDS: fentaNYL PF VIAL 100 MCG/2 ML VIAL IV PRN ×3 (08:51→18:21)
[2017-01-18] MEDS: metFORMIN 500 MG TABLET PO SCH ×2 (08:52→17:00)
[2017-01-18] MEDS: SERTRALINE 50 MG TABLET. PO SCH (08:52)
[2017-01-18] MEDS: DOCUSATE SODIUM 100 MG CAPSULE. PO PRN ×2 (08:52→21:51)
[2017-01-18] MEDS: FOLIC ACID 1 MG TABLET. PO SCH (08:52)
[2017-01-18] MEDS: PANTOPRAZOLE 40 MG TABLET.DR. PO SCH (08:52)
--- NOTE | 2017-01-18 10:01 | PDOC ---
PROGRESS NOTES Subjective Subjective constipated today Objective Objective Vital Signs Date Time Temp Pulse Resp B/P (MAP) Pulse Ox O2 Delivery O2 Flow Rate FiO2 01/18/17 08:56 Room Air 01/18/17 07:00 98.4 63 16 134/76 (95) 93 98.4 01/17/17 16:30 1.0 Physical Exam Abdomen: Soft, No tenderness Heart: Regular rate, Normal S1, Normal S2 Extremities: No clubbing, No cyanosis General: Alert, Oriented X3, Cooperative, No acute distress HEENT: PERRLA, Mucous membr. moist/pink Lungs: Clear to auscultation, Normal air movement MUSCULOSKELETAL: No deformity, No swelling Neuro: Normal gait, Normal speech Psych/Mental Status: Mental status NL, Mood NL Skin: No rashes, No breakdown Diagnosis Problem List Problems Medical Problems: (1) Rectal pain Status: Acute Assessment Assessment Problems Medical Problems: (1) Rectal pain Status: Acute FINAL IMPRESSION: 1. Severe painful hemorrhoids. 2. Diabetes. 3. Asthma. 4.Sleep Apnea PLAN:colace for constipation surgery yesterday Operative Note Date 01/17/2017 Preoperative diagnosis: Thrombosed external hemorrhoid Postoperative diagnosis: Same Procedure: Excision of thrombosed hemorrhoid Surgeon: Natan Specimen: Hemorrhoid home today or tomorrow. cpap mask Problems: Plan Plan of Care Problems Medical Problems: (1) Rectal pain Status: Acute Comment Review of Relevant I have reviewed the following items inocencia (where applicable) has been applied. Labs Laboratory Tests Test 01/17/17 12:06 01/17/17 15:46 01/17/17 20:44 01/18/17 07:37 Glucose (Fingerstick) 104 mg/dL (70-99) 125 mg/dL (70-99) 154 mg/dL (70-99) 99 mg/dL (70-99) Medications Current Medications Cefazolin Sodium/ Dextrose 50 ml @ 100 mls/hr 1X PREOP PRN IV Surgery; Start 01/18/17 at 06:00; Stop 01/18/17 at 18:00 Cefazolin Sodium/ Dextrose 50 ml @ As Directed STK-MED ONCE IV ; Start at 10:34; Stop 01/17/17 at 10:35; Status DC Diphenhydramine HCl (Benadryl) 25 mg 1X ONCE IVP Last administered on 11:55; Start 01/17/17 at 12:00; Stop 01/17/17 at 12:01; Status DC Diphenhydramine HCl (Benadryl) 50 mg STK-MED ONCE .ROUTE ; Start 01/17/17 at 11 :52; Stop 01/17/17 at 11:53; Status DC Docusate Sodium (Colace) 100 mg PRN DAILY PRN PO CONSTIPATION Last administered on 01/18/17 08:52; Start 01/18/17 at 07:45 Fentanyl Citrate (Fentanyl 2ml Vial) 100 mcg STK-MED ONCE .ROUTE ; Start at 11:06; Stop 01/17/17 at 11:07; Status DC Ketorolac Tromethamine (Toradol For Or Only) 30 mg STK-MED ONCE INJ ; Start 02/23 at 11:07; Stop 01/17/17 at 11:08; Status DC Metformin HCl (Glucophage) 500 mg BIDWMEALS PO Last administered on 01/18/17 08:52; Start 01/17/17 at 17:00 Polyethylene Glycol (miraLAX PACKET) 17 gm PRN DAILY PRN PO CONSTIPATION Last administered on 01/18/17 08:53; Start 01/18/17 at 07:45 Sevoflurane (Ultane) 15 ml STK-MED ONCE IH ; Start 01/17/17 at 11:07; Stop 02/23 at 11:08; Status DC Vitals/I & O Vital Sign - Last 24 Hours 01/17/17 01/17/17 01/17/17 01/17/17 10:30 11:10 11:25 11:26 Temp 97.6 98.6 97.6 98.6 Pulse 57 57 57 Resp 16 16 16 16 B/P (MAP) 139/98 137/101 117/67 Pulse Ox 97 99 97 99 O2 Delivery Room Air Simple Mask Nasal Cannula Room Air O2 Flow Rate 10 2 01/17/17 01/17/17 01/17/17 01/17/17 11:40 11:45 11:55 11:55 Temp 99.5 99.5 Pulse 72 63 Resp 16 19 16 16 B/P (MAP) 114/66 111/63 Pulse Ox 96 2 97 95 O2 Delivery Nasal Cannula Nasal Cannula Nasal Cannula Nasal Cannula O2 Flow Rate 2 2.0 2.0 2 01/17/17 01/17/17 01/17/17 01/17/17 12:30 12:54 13:15 13:30 Temp 97.6 97.6 97.6 97.6 97.6 97.6 97.6 97.6 Pulse 57 52 59 58 Resp 16 16 16 16 B/P (MAP) 117/64 (81) 119/64 (82) Pulse Ox 96 96 95 95 O2 Delivery Nasal Cannula Nasal Cannula Nasal Cannula Nasal Cannula O2 Flow Rate 2.0 2.0 1.0 1.0 01/17/17 01/17/17 01/17/17 01/17/17 13:45 14:00 14:15 14:30 Temp 97.6 97.6 97.6 97.6 97.6 97.6 97.6 97.6 Pulse 57 53 59 56 Resp 16 14 14 14 B/P (MAP) 106/52 (70) 120/66 (84) Pulse Ox 94 92 93 95 O2 Delivery Nasal Cannula Nasal Cannula Nasal Cannula Nasal Cannula O2 Flow Rate 1.0 1.0 1.0 1.0 01/17/17 01/17/17 01/17/17 01/17/17 14:45 15:00 15:15 15:33 Temp 97.5 97.6 97.6 97.5 97.6 97.6 Pulse 71 54 57 Resp 14 16 16 B/P (MAP) 123/66 (85) 110/63 (79) Pulse Ox 98 94 95 O2 Delivery Nasal Cannula Nasal Cannula Nasal Cannula Room Air O2 Flow Rate 1.0 1.0 1.0 01/17/17 01/17/17 01/17/17 01/17/17 15:45 16:00 16:15 16:30 Temp 97.6 97.6 97.6 97.6 97.6 97.6 97.6 97.6 Pulse 65 81 69 71 Resp 16 16 16 16 B/P (MAP) 124/78 (93) 122/66 (84) Pulse Ox 96 94 91 90 O2 Delivery Nasal Cannula Nasal Cannula Nasal Cannula Nasal Cannula O2 Flow Rate 1.0 1.0 1.0 1.0 01/17/17 01/17/17 01/17/17 01/17/17 16:45 17:00 17:15 17:30 Temp 97.6 97.6 97.6 97.6 97.6 97.6 97.6 97.6 Pulse 67 58 65 61 Resp 16 16 16 16 B/P (MAP) 114/69 (84) 113/74 (87) Pulse Ox 91 95 95 94 O2 Delivery Room Air Room Air Room Air Room Air 01/17/17 01/17/17 01/17/17 01/17/17 17:45 19:00 20:12 20:19 Temp 97.6 97.3 97.6 97.3 Pulse 60 72 Resp 16 18 20 B/P (MAP) 121/74 (90) Pulse Ox 94 96 98 O2 Delivery Room Air Room Air Room Air Room Air 01/17/17 01/17/17 01/18/17 01/18/17 21:20 23:00 03:00 03:47 Temp 97.9 98.8 97.9 98.8 Pulse 69 57 Resp 20 18 18 20 B/P (MAP) 120/67 (84) 122/57 (78) Pulse Ox 95 96 O2 Delivery Room Air Room Air Room Air 01/18/17 01/18/17 01/18/17 01/18/17 06:54 07:00 08:51 08:56 Temp 98.4 98.4 Pulse 63 Resp 16 B/P (MAP) 134/76 (95) Pulse Ox 96 93 O2 Delivery Room Air Room Air Room Air Room Air JERRELL GOMEZ MD Jan 18, 2017 10:00
[2017-01-18 11:10] VITALS: BP 124/69
[2017-01-18] MEDS: KETOROLAC TROMETHAMINE 10 MG TABLET PO PRN (11:33)
[2017-01-18] MEDS: HYDROcodone/APAP 10/325 1 TAB TABLET PO PRN ×2 (13:31→21:50)
[2017-01-18 15:00] VITALS: BP 131/79
--- NOTE | 2017-01-18 15:06 | PATHOLOGY ---
PATHOLOGY REPORT * * * * * * * * FINAL DIAGNOSIS: Squamous mucosa and submucosal tissue, hemorrhoidectomy: - Thrombosed hemorrhoids, with focal mucosal erosion and acute and chronic inflammation. COMMENT: There is no evidence of malignancy. (JPM:mml; 01/18/2017) REPORT ELECTRONICALLY SIGNED BY: Monty Her M.D. DATE/TIME: 01/18/2017 15:05 * * * * * * * * GROSS PATHOLOGY: Received in formalin labeled "Jacoby Winchester, hemorrhoids," are 2 segments of villalpando-pink epithelial covered tissue ranging from 0.8 x 0.6 x 0.7 to 1.4 x 0.8 x 0.9 cm in maximum dimensions. The epithelial surfaces appear intact, without grossly apparent lesions. On cut section, the subepithelial tissue has a highly vascular appearance. 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 (TSD; 01/17/2017) INITIAL CPT CODE(S): A; 04745 Professional services performed [place] [facility] [place] [address] Technical services performed by [facility] at [address] [place] [address] [address], [place] [address]. SPECIMEN(S) RECEIVED: A.Hemorrhoids CLINICAL HISTORY: Hemorrhoids, rectal pain PATIENT: JACOBY WINCHESTER /AGE: 8 1980 (Age: 36) PATIENT #: [id number] ALT CASE #: SPECIMEN COLLECTION DATE: 01/17/2017 SPECIMEN RECEIVED DATE: 01/17/2017 [facility] - [address] [place] [address] - PHONE: [phone] * * * END OF REPORT * * *
[2017-01-18] MEDS: LIDOCAINE 5% TOPICAL OINTMENT 35GM TUBE. TP PRN ×2 (15:58→22:31)
[2017-01-18 19:00] VITALS: BP 128/74
[2017-01-18 23:00] VITALS: BP 132/85
[2017-01-19] VITALS (7 sets, daily range): BP systolic 118–159; BP diastolic 69–99
[2017-01-19] MEDS: KETOROLAC TROMETHAMINE 10 MG TABLET PO PRN ×2 (02:36→23:57)
[2017-01-19] MEDS: HYDROcodone/APAP 10/325 1 TAB TABLET PO PRN ×4 (03:56→21:44)
[2017-01-19] MEDS: INSULIN ASPART 300 UNITS/3 ML INSULN.PEN SQ SCH ×3 (08:00→17:00)
[2017-01-19] MEDS: PANTOPRAZOLE 40 MG TABLET.DR. PO SCH (08:34)
[2017-01-19] MEDS: FOLIC ACID 1 MG TABLET. PO SCH (08:34)
[2017-01-19] MEDS: metFORMIN 500 MG TABLET PO SCH ×2 (08:34→18:21)
[2017-01-19] MEDS: SERTRALINE 50 MG TABLET. PO SCH (08:34)
[2017-01-19] MEDS: BUDESONIDE 0.5 MG/2 ML NEBU. NEB SCH ×2 (08:43→19:29)
[2017-01-19] MEDS: IPRATRPIUM/ALBUTEROL 0.5/2.5MG 3 ML NEBU. NEB SCH ×4 (08:43→19:29)
[2017-01-19] MEDS ORDERED: MAGNESIUM CITRATE 296 ML SOLUTION. PO PRN (09:45)
[2017-01-19] MEDS ORDERED: oxyCODONE/APAP 10/325 1 TAB TABLET PO PRN (09:45)
--- NOTE | 2017-01-19 10:14 | PDOC ---
PROGRESS NOTES Subjective Subjective c/o low back pain, still has no BM Objective Objective Vital Signs Date Time Temp Pulse Resp B/P (MAP) Pulse Ox O2 Delivery O2 Flow Rate FiO2 01/19/17 08:48 97 Room Air 01/19/17 08:34 18 01/19/17 07:00 98.1 56 148/93 (111) 98.1 01/18/17 17:05 1.0 Physical Exam Abdomen: Soft, No tenderness Heart: Regular rate, Normal S1, Normal S2 Extremities: No clubbing, No cyanosis General: Alert, Oriented X3, Cooperative, No acute distress HEENT: PERRLA, Mucous membr. moist/pink Lungs: Clear to auscultation, Normal air movement MUSCULOSKELETAL: No deformity, No swelling Neuro: Normal gait, Normal speech Psych/Mental Status: Mental status NL, Mood NL Skin: No rashes, No breakdown Diagnosis Problem List Problems Medical Problems: (1) Rectal pain Status: Acute Assessment Assessment Problems Medical Problems: (1) Rectal pain Status: Acute FINAL IMPRESSION: 1. Severe painful hemorrhoids. 2. Diabetes. 3. Asthma. 4.Sleep Apnea PLAN:rehab consult dr simmons. started on medrol dose pack, colace for constipation surgery done Operative Note Date 01/17/2017 Preoperative diagnosis: Thrombosed external hemorrhoid Postoperative diagnosis: Same Procedure: Excision of thrombosed hemorrhoid Surgeon: Natan Specimen: Hemorrhoid home tomorrow. cpap mask Problems: Plan Plan of Care Problems Medical Problems: (1) Rectal pain Status: Acute Comment Review of Relevant I have reviewed the following items inocencia (where applicable) has been applied. Labs Laboratory Tests Test 01/18/17 11:23 01/18/17 17:02 01/18/17 20:39 01/19/17 07:52 Glucose (Fingerstick) 82 mg/dL (70-99) 111 mg/dL (70-99) 96 mg/dL (70-99) 87 mg/dL (70-99) Medications Current Medications Acetaminophen/ Hydrocodone Bitart (Lortab 10/325) 1 tab PRN Q6HRS PRN PO PAIN Last administered on 01/19/17t 08:34; Start 01/18/17 at 12:00 Bisacodyl (Dulcolax Tab) 10 mg DAILY PO ; Start 01/19/17 at 10:00 Lidocaine (Xylocaine) 1 michael PRN QID PRN TP rectal pain Last administered on t 22:31; Start 01/18/17 at 15:45 Magnesium Citrate (Citroma) 296 ml PRN 1X PRN PO CONSTIPATION; Start 01/19/17 at 09:45 Methylprednisolone (Medrol) 4 mg BID PO ; Start 01/23/17 at 09:00; Stop at 21:01 Methylprednisolone (Medrol) 4 mg BIDPCLD PO ; Start 01/19/17 at 12:30; Stop at 17:31 Methylprednisolone (Medrol) 4 mg DAILY PO ; Start 01/24/17 at 09:00; Stop at 09:01 Methylprednisolone (Medrol) 4 mg QIDAFTMEAL PO ; Start 01/21/17 at 09:00; Stop 01/21/17 at 21:01 Methylprednisolone (Medrol) 4 mg TID PO ; Start 01/22/17 at 09:00; Stop at 21:01 Methylprednisolone (Medrol) 4 mg TIDPC PO ; Start 01/20/17 at 08:30; Stop at 17:31 Methylprednisolone (Medrol) 8 mg BID PO ; Start 01/19/17 at 10:00; Stop at 21:01 Methylprednisolone (Medrol) 8 mg QHS PO ; Start 01/20/17 at 21:00; Stop at 21:01 Oxycodone/ Acetaminophen (Percocet 10/325) 1 tab PRN Q6HRS PRN PO PAIN; Start 01/19/17 at 09:45 Senna/Docusate Sodium (Senna Plus) 1 tab BID PO ; Start 01/19/17 at 10:00 Vitals/I & O Vital Sign - Last 24 Hours 01/18/17 01/18/17 01/18/17 01/18/17 10:43 11:10 11:34 12:17 Temp 97.3 97.3 Pulse 66 Resp 20 B/P (MAP) 124/69 (87) Pulse Ox 99 98 O2 Delivery Room Air Room Air Room Air Room Air 01/18/17 01/18/17 01/18/17 01/18/17 13:31 15:00 15:21 17:05 Temp 97.6 97.6 Pulse 65 Resp 16 B/P (MAP) 131/79 (96) Pulse Ox 98 96 96 O2 Delivery Room Air Room Air Room Air O2 Flow Rate 1.0 01/18/17 01/18/17 01/18/17 01/18/17 18:21 19:00 19:16 19:16 Temp 97.9 97.9 Pulse 60 Resp 18 B/P (MAP) 128/74 (92) Pulse Ox 95 O2 Delivery Room Air Room Air Room Air Room Air 01/18/17 01/18/17 01/18/17 01/18/17 19:38 20:15 21:50 23:00 Temp 98.5 98.5 Pulse 57 Resp 16 18 B/P (MAP) 132/85 (101) Pulse Ox 98 O2 Delivery Room Air Room Air Room Air 01/19/17 01/19/17 01/19/17 01/19/17 03:00 03:56 05:05 07:00 Temp 97.8 98.1 97.8 98.1 Pulse 63 56 Resp 18 16 16 18 B/P (MAP) 159/99 (119) 148/93 (111) Pulse Ox 96 95 O2 Delivery Room Air Room Air Room Air Room Air 01/19/17 01/19/17 08:34 08:48 Resp 18 Pulse Ox 96 97 O2 Delivery Room Air Room Air JERRELL GOMEZ MD Jan 19, 2017 10:14
--- NOTE | 2017-01-19 10:26 | CONS ---
DATE OF CONSULTATION: 01/19/2017 ATTENDING PHYSICIAN: Dr. Doll. The patient was seen at the request of Dr. Doll for rehab evaluation about her lower back area discomfort. She is in room 420. 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 The patient had problems with hemorrhoids, had surgery couple of years ago, came back, lots of pain, not able to walk, was admitted through the Emergency Room. CT scan of the abdomen and pelvis were negative, noted with hemoglobin of 11 grams percent. The patient had excision of the thrombosed hemorrhoid done by Dr. Gama on 01/17/2017. Since that time, she is having some lower back area discomfort. The patient denies any radiation of pain to the extremities. She denies any trouble with bladder control, but admits no bowel movement since admission. The patient denies any chronic lower back pain. The patient is not known allergic to any medication. She admits hydrocodone she has taken right now is not helping ease her pain. Past medical history also includes diabetes mellitus type 2, asthmatic bronchitis. The patient had hemorrhoid surgery in the past, also left ovary, fallopian tube and cyst removed in the past. FAMILY HISTORY: Positive for diabetes mellitus and hypertension. PHYSICAL EXAMINATION: Today revealed young female patient, in moderate distress. She had painful limited movements of her lumbar spine without any significant paraspinal muscle spasm and localized tenderness to palpation over her left sacroiliac joint area. Straight leg raising test is negative bilaterally. She had 5/5 grade muscle strength in her extremities and deep tendon reflexes are 2+ and symmetrical and she had equal perception of touch and pinprick sensation bilaterally. She had pain free range of motion of all four extremity joints. She is independent with bed mobility and transfers. Once up, she can walk using a roller walker. ASSESSMENT: Young female with lumbosacral sprain, probably at the time of surgery or afterwards. No clinical evidence of lumbar radiculopathy. The patient with obesity, diabetes mellitus, asthmatic bronchitis. RECOMMENDATION: To try Medrol Dosepak and Percocet for better pain control and to ask Front [employer] to try her with lumbar corset and to work on her constipation hopefully home with outpatient followup when medically stable in the next day or so. Dr. Doll, I appreciate asking me to participate in the care of this interesting patient. I will be glad to follow her with you as needed for her rehabilitation. GARCIA EPPERSON MD DR: KRISS/elaine JOB#: [id number] / [id number]
[2017-01-19] MEDS: SENNOSIDES/DOCUSATE 8.6/50MG TABLET. PO SCH ×2 (11:12→21:43)
[2017-01-19] MEDS: BISACODYL 5 MG TABLET.DR. PO SCH (11:13)
[2017-01-19] MEDS: methylPREDNISolone 4 MG TABLET. PO SCH ×4 (11:13→21:43)
--- NOTE | 2017-01-19 13:06 | PDOC ---
DANIELLE HUNG GIN FEEDER 01/19/17 1306: SURGICAL PROGRESS NOTE Subjective pain, rectal/back no stool yet Vital Signs Vital Signs Date Time Temp Pulse Resp B/P (MAP) Pulse Ox O2 Delivery O2 Flow Rate FiO2 01/19/17 11:06 97.6 59 18 128/69 (88) 96 Room Air 97.6 01/18/17 17:05 1.0 I&O Intake and Output 01/20/17 06:59 Intake Total 350 ml Balance 350 ml Intake Oral 350 ml General: Alert, Oriented X3, Cooperative, No acute distress Skin: Other (rectal area viewed, mild serosang drainage) Labs Laboratory Tests Test 01/17/17 15:46 01/17/17 20:44 01/18/17 07:37 01/18/17 11:23 Glucose (Fingerstick) 125 mg/dL (70-99) 154 mg/dL (70-99) 99 mg/dL (70-99) 82 mg/dL (70-99) Test 01/18/17 17:02 01/18/17 20:39 01/19/17 07:52 01/19/17 10:39 Glucose (Fingerstick) 111 mg/dL (70-99) 96 mg/dL (70-99) 87 mg/dL (70-99) 78 mg/dL (70-99) Laboratory Tests Test 01/18/17 17:02 01/18/17 20:39 01/19/17 07:52 01/19/17 10:39 Glucose (Fingerstick) 111 mg/dL (70-99) 96 mg/dL (70-99) 87 mg/dL (70-99) 78 mg/dL (70-99) Problem List Problems Medical Problems: (1) Rectal pain Status: Acute Assessment/Plan continue supportive care bowel regimen to prevent constipation Problems: JOANNA CORRALES MD 01/19/17 1521: SURGICAL PROGRESS NOTE Assessment/Plan Agree with Shannan's assessment and plan. Problems: DANIELLE HUNG Val GIN FEEDER Jan 19, 2017 13:06 JOANNA CORRALES MD Jan 19, 2017 15:21
[2017-01-19] MEDS: LIDOCAINE 5% TOPICAL OINTMENT 35GM TUBE. TP PRN (21:42)
[2017-01-20 03:00] VITALS: BP 132/73
[2017-01-20] MEDS: fentaNYL PF VIAL 100 MCG/2 ML VIAL IV PRN (05:08)
[2017-01-20 07:00] VITALS: BP 111/66
[2017-01-20] MEDS: INSULIN ASPART 300 UNITS/3 ML INSULN.PEN SQ SCH ×3 (08:00→17:00)
[2017-01-20] MEDS: IPRATRPIUM/ALBUTEROL 0.5/2.5MG 3 ML NEBU. NEB SCH ×3 (08:17→16:23)
[2017-01-20] MEDS: BUDESONIDE 0.5 MG/2 ML NEBU. NEB SCH (08:18)
[2017-01-20] MEDS: HYDROcodone/APAP 10/325 1 TAB TABLET PO PRN (10:22)
[2017-01-20] MEDS: metFORMIN 500 MG TABLET PO SCH ×2 (10:23→15:52)
[2017-01-20] MEDS: PANTOPRAZOLE 40 MG TABLET.DR. PO SCH (10:24)
[2017-01-20] MEDS: SENNOSIDES/DOCUSATE 8.6/50MG TABLET. PO SCH (10:24)
[2017-01-20] MEDS: methylPREDNISolone 4 MG TABLET. PO SCH ×3 (10:24→17:30)
[2017-01-20] MEDS: BISACODYL 5 MG TABLET.DR. PO SCH (10:24)
[2017-01-20] MEDS: FOLIC ACID 1 MG TABLET. PO SCH (10:25)
[2017-01-20] MEDS: SERTRALINE 50 MG TABLET. PO SCH (10:25)
[2017-01-20] MEDS: LIDOCAINE 5% TOPICAL OINTMENT 35GM TUBE. TP PRN (10:25)
[2017-01-20 11:00] VITALS: BP 108/64
--- NOTE | 2017-01-20 11:28 | PDOC ---
PROGRESS NOTES Subjective Subjective She feels better. Objective Objective Vital Signs Date Time Temp Pulse Resp B/P (MAP) Pulse Ox O2 Delivery O2 Flow Rate FiO2 01/20/17 10:22 12 95 Room Air 01/20/17 07:00 97.5 58 111/66 (81) 97.5 01/18/17 17:05 1.0 Physical Exam Physical Exam She is comfortable moving with lumbar corset and low back pain is under good control and she had a bowel movement. Assessment Assessment Problems Medical Problems: (1) Rectal pain Status: Acute Plan Plan of Retirement with out patient follow up when medically ready. Comment Review of Relevant I have reviewed the following items inocencia (where applicable) has been applied. Labs Laboratory Tests Test 01/18/17 17:02 01/18/17 20:39 01/19/17 07:52 01/19/17 10:39 Glucose (Fingerstick) 111 mg/dL (70-99) 96 mg/dL (70-99) 87 mg/dL (70-99) 78 mg/dL (70-99) Test 01/19/17 16:45 01/19/17 20:47 01/20/17 07:03 01/20/17 10:56 Glucose (Fingerstick) 107 mg/dL (70-99) 128 mg/dL (70-99) 106 mg/dL (70-99) 92 mg/dL (70-99) Laboratory Tests Test 01/19/17 16:45 01/19/17 20:47 01/20/17 07:03 01/20/17 10:56 Glucose (Fingerstick) 107 mg/dL (70-99) 128 mg/dL (70-99) 106 mg/dL (70-99) 92 mg/dL (70-99) Medications Current Medications Sodium Chloride 1,000 ml @ 1,000 mls/hr 1X ONCE IV Last administered on 12:23; Start 01/15/17 at 12:00; Stop 01/15/17 at 12:59; Status DC Ondansetron HCl (Zofran) 4 mg 1X ONCE IV Last administered on 01/15/17 12:23 ; Start 01/15/17 at 12:00; Stop 01/15/17 at 12:02; Status DC Ketorolac Tromethamine (Toradol) 30 mg 1X ONCE IV Last administered on 12:23; Start 01/15/17 at 12:00; Stop 01/15/17 at 12:02; Status DC Iohexol (Omnipaque 300 Mg/ml) 75 ml 1X ONCE IV Last administered on 01/15/17 13:29; Start 01/15/17 at 13:15; Stop 01/15/17 at 13:16; Status DC Info (Do NOT chart on this entry -- for MONITORING) 1 each PRN DAILY PRN MC SEE COMMENTS; Start 01/15/17 at 13:30; Stop 01/17/17 at 13:29; Status DC Ondansetron HCl (Zofran) 4 mg PRN Q8HRS PRN IV NAUSEA/VOMITING; Start 01/15/17 at 16:00; Stop 01/16/17 at 15:59; Status DC Acetaminophen (Tylenol) 650 mg PRN Q4HRS PRN PO FEVER; Start 01/15/17 at 16:00 ; Stop 01/16/17 at 15:59; Status DC Hydrocortisone Acetate (Anucort-Hc) 25 mg PRN Q12HR PRN PA RECTAL PAIN Last administered on 01/17/17 03:03; Start 01/15/17 at 16:00 Ketorolac Tromethamine (Toradol) 10 mg PRN Q6HRS PRN IV PAIN Last administered on 01/18/17 15:15; Start 01/15/17 at 18:00; Stop 01/20/17 at 17:59 Fentanyl Citrate (Fentanyl 2ml Vial) 12.5 mcg PRN Q3HRS PRN IV PAIN Last administered on 01/20/17 05:08; Start 01/15/17 at 18:00 Acetaminophen/ Hydrocodone Bitart (Lortab 5/325) 1 tab PRN Q6HRS PRN PO PAIN Last administered on 01/18/17 08:56; Start 01/15/17 at 18:00 Albuterol Sulfate (Ventolin Neb Soln) 2.5 mg PRN Q6HRS PRN NEB SHORTNESS OF BREATH; Start 01/15/17 at 18:30; Status Cancel Sodium Chloride 1,000 ml @ 75 mls/hr [id number] IV Last administered on 02:11; Start 01/15/17 at 18:30; Stop 01/18/17 at 10:03; Status DC Albuterol Sulfate (Ventolin Hfa) 2 puff Q4HRS INH ; Start 01/15/17 at 20:00; Status UNV Folic Acid (Folic Acid) 1 mg DAILY PO Last administered on 01/20/17 10:25; Start 01/16/17 at 09:00 Metformin HCl (Glucophage) 500 mg BIDWMEALS PO Last administered on 01/20/17 10:23; Start 01/17/17 at 17:00 Sertraline HCl (Zoloft) 50 mg DAILY PO Last administered on 01/20/17 10:25; Start 01/16/17 at 09:00 Non-Formulary Medication 2 puff QID INH ; Start 01/15/17 at 21:00; Status UNV Non-Formulary Medication 1 puff BID IH ; Start 01/15/17 at 21:00; Status UNV Non-Formulary Medication 2 puff BID IH ; Start 01/15/17 at 21:00; Status UNV Pantoprazole Sodium (Protonix) 40 mg DAILYAC PO Last administered on 10:24; Start 01/16/17 at 07:30 Non-Formulary Medication 2 inh DAILY IH ; Start 01/16/17 at 09:00; Status UNV Albuterol/ Ipratropium (Duoneb) 3 ml RTQID NEB Last administered on 01/20/17 08:17; Start 01/15/17 at 20:00 Albuterol Sulfate (Ventolin Neb Soln) 2.5 mg PRN Q4HRS PRN NEB SHORTNESS OF BREATH; Start 01/15/17 at 18:45 Budesonide (Pulmicort) 0.5 mg RTBID NEB Last administered on 01/20/17 08:18; Start 01/15/17 at 20:00 Insulin Aspart (NovoLOG) 0-7 UNITS TIDWMEALS SQ ; Start 01/16/17 at 12:00 Dextrose (Dextrose 50%-Water Syringe) 12.5 gm PRN Q15MIN PRN IV SEE COMMENTS; Start 01/16/17 at 09:30 Influenza Virus Vaccine Quadrival (Fluarix Quad [id number] Syringe) 0.5 ml ONCE ONCE VAX IM Last administered on 01/16/17 15:33; Start 01/16/17 at 15:00; Stop 01/16/17 at 15:04; Status DC Ondansetron HCl (Zofran) 4 mg PRN Q6HRS PRN IV NAUSEA/VOMITING; Start at 07:00; Stop 01/18/17 at 06:59; Status DC Fentanyl Citrate (Fentanyl 2ml Vial) 25 mcg PRN Q5MIN PRN IV MILD PAIN; Start 01/17/17 at 07:00; Stop 01/18/17 at 06:59; Status DC Fentanyl Citrate (Fentanyl 2ml Vial) 50 mcg PRN Q5MIN PRN IV MODERATE PAIN Last administered on 01/17/17 11:26; Start 01/17/17 at 07:00; Stop 01/18/17 at 06:59; Status DC Morphine Sulfate 1 mg PRN Q10MIN PRN IV SEVERE PAIN; Start 01/17/17 at 07:00; Stop 01/18/17 at 06:59; Status DC Ringer's Solution 1,000 ml @ 30 mls/hr Q24H IV ; Start 01/17/17 at 07:00; Stop 01/17/17 at 18:59; Status DC Lidocaine HCl (Xylocaine-Mpf 1% Vial) 2 ml PRN 1X PRN ID IV START; Start 01/17 at 07:00; Stop 01/18/17 at 06:59; Status DC Hydromorphone HCl (Dilaudid) 0.5 mg PRN Q10MIN PRN IV SEV PAIN, Second choice Last administered on 01/17/17 11:55; Start 01/17/17 at 07:00; Stop 01/18/17 at 06:59; Status DC Prochlorperazine Edisylate (Compazine) 5 mg PACU PRN PRN IV NAUSEA, MRX1 Last administered on 01/17/17 11:27; Start 01/17/17 at 07:00; Stop 01/18/17 at 06 :59; Status DC Midazolam HCl (Versed) 2 mg STK-MED ONCE .ROUTE ; Start 01/17/17 at 07:22; Stop 01/17/17 at 07:23; Status DC Fentanyl Citrate (Fentanyl 5ml Vial) 250 mcg STK-MED ONCE .ROUTE ; Start at 07:23; Stop 01/17/17 at 07:24; Status DC Rocuronium [place] (Zemuron) 100 mg STK-MED ONCE .ROUTE ; Start 01/17/17 at 07: 23; Stop 01/17/17 at 07:24; Status DC Propofol 20 ml @ As Directed STK-MED ONCE IV ; Start 01/17/17 at 08:20; Stop 01/17/17 at 08:21; Status DC Lidocaine HCl (Lidocaine Pf 2% Vial) 5 ml STK-MED ONCE .ROUTE ; Start 01/17/17 at 08:20; Stop 01/17/17 at 08:21; Status DC Dexamethasone Sodium Phosphate (Decadron) 20 mg STK-MED ONCE .ROUTE ; Start 02/23 at 08:20; Stop 01/17/17 at 08:21; Status DC Neomycin/ Polymyxin/ Bacitracin (Triple Antibiotic Ointment) 1 pkt STK-MED ONCE TP ; Start 01/17/17 at 09:12; Stop 01/17/17 at 10:12; Status DC Bupivacaine HCl/ Epinephrine Bitart (Marcaine-Epi 0.5%-1:[id number]) 50 ml STK-MED ONCE .ROUTE Last administered on 01/17/17t 10:53; Start 01/17/17 at 09:12; Stop 01/17/17 at 10:13; Status DC Cefazolin Sodium/ Dextrose 50 ml @ As Directed STK-MED ONCE IV ; Start at 10:34; Stop 01/17/17 at 10:35; Status DC Fentanyl Citrate (Fentanyl 2ml Vial) 100 mcg STK-MED ONCE .ROUTE ; Start at 11:06; Stop 01/17/17 at 11:07; Status DC Sevoflurane (Ultane) 15 ml STK-MED ONCE IH ; Start 01/17/17 at 11:07; Stop 02/23 at 11:08; Status DC Ketorolac Tromethamine (Toradol For Or Only) 30 mg STK-MED ONCE INJ ; Start 02/23 at 11:07; Stop 01/17/17 at 11:08; Status DC Cefazolin Sodium/ Dextrose 50 ml @ 100 mls/hr 1X PREOP PRN IV Surgery; Start 01/18/17 at 06:00; Stop 01/18/17 at 11:02; Status DC Diphenhydramine HCl (Benadryl) 50 mg STK-MED ONCE .ROUTE ; Start 01/17/17 at 11 :52; Stop 01/17/17 at 11:53; Status DC Diphenhydramine HCl (Benadryl) 25 mg 1X ONCE IVP Last administered on 11:55; Start 01/17/17 at 12:00; Stop 01/17/17 at 12:01; Status DC Docusate Sodium (Colace) 100 mg PRN DAILY PRN PO CONSTIPATION Last administered on 01/18/17 21:51; Start 01/18/17 at 07:45 Polyethylene Glycol (miraLAX PACKET) 17 gm PRN DAILY PRN PO CONSTIPATION Last administered on 01/18/17 08:53; Start 01/18/17 at 07:45 Ketorolac Tromethamine (Toradol) 10 mg PRN TID PRN PO MILD PAIN Last administered on 01/19/17 23:57; Start 01/18/17 at 10:00; Stop 01/23/17 at 09 :59 Acetaminophen/ Hydrocodone Bitart (Lortab 10/325) 1 tab PRN Q6HRS PRN PO PAIN Last administered on 01/20/17 10:22; Start 01/18/17 at 12:00 Lidocaine (Xylocaine) 1 michael PRN QID PRN TP rectal pain Last administered on 10:25; Start 01/18/17 at 15:45 Methylprednisolone (Medrol) 8 mg BID PO Last administered on 01/19/17 21:43; Start 01/19/17 at 10:00; Stop 01/19/17 at 21:01; Status DC Methylprednisolone (Medrol) 4 mg BIDPCLD PO Last administered on 01/19/17 18: 21; Start 01/19/17 at 12:30; Stop 01/19/17 at 17:31; Status DC Methylprednisolone (Medrol) 4 mg TIDPC PO Last administered on 01/20/17 10:24 ; Start 01/20/17 at 08:30; Stop 01/20/17 at 17:31 Methylprednisolone (Medrol) 8 mg QHS PO ; Start 01/20/17 at 21:00; Stop at 21:01 Methylprednisolone (Medrol) 4 mg QIDAFTMEAL PO ; Start 01/21/17 at 09:00; Stop 01/21/17 at 21:01 Methylprednisolone (Medrol) 4 mg TID PO ; Start 01/22/17 at 09:00; Stop at 21:01 Methylprednisolone (Medrol) 4 mg BID PO ; Start 01/23/17 at 09:00; Stop at 21:01 Methylprednisolone (Medrol) 4 mg DAILY PO ; Start 01/24/17 at 09:00; Stop at 09:01 Oxycodone/ Acetaminophen (Percocet 10/325) 1 tab PRN Q6HRS PRN PO PAIN Last administered on 01/20/17 03:31; Start 01/19/17 at 09:45 Bisacodyl (Dulcolax Tab) 10 mg DAILY PO Last administered on 01/20/17 10:24; Start 01/19/17 at 10:00 Senna/Docusate Sodium (Senna Plus) 1 tab BID PO Last administered on 10:24; Start 01/19/17 at 10:00 Magnesium Citrate (Citroma) 296 ml PRN 1X PRN PO CONSTIPATION Last administered on 01/19/17 18:21; Start 01/19/17 at 09:45 Active Scripts Active Reported Zoloft (Sertraline Hcl) 50 Mg Tablet 50 Mg PO DAILY Ventolin Hfa Inhaler (Albuterol Sulfate) 18 Gm Hfa.aer.ad 2 Puff INH QID Spiriva (Tiotropium [place]) 18 Mcg Cap.w.dev 2 Inh IH DAILY Omeprazole 40 Mg Capsule.dr 40 Mg PO DAILY Metformin Hcl 500 Mg Tablet 500 Mg PO BIDWMEALS Folic Acid 1 Mg Tablet 1 Mg PO DAILY Flovent 100MCG Diskus (Fluticasone Propionate) 100 Mcg Disk.w.dev 1 Puff IH BID Dulera 200 Mcg/5 Mcg Inhaler (Mometasone/Formoterol) 13 Gm Hfa.aer.ad 2 Puff IH BID Metformin Hcl 500 Mg Tablet 500 Mg PO BIDWMEALS Albuterol Sulfate Hfa Inhaler (Albuterol Sulfate) 8.5 Gm Hfa.aer.ad 2 Puff INH Q4HRS Vitals/I & O Vital Sign - Last 24 Hours 01/19/17 01/19/17 01/19/17 01/19/17 11:35 14:05 15:00 15:05 Temp 97.7 97.7 Pulse 61 Resp 16 18 B/P (MAP) 152/83 (106) Pulse Ox 98 95 96 95 O2 Delivery Room Air Room Air Room Air 01/19/17 01/19/17 01/19/17 01/19/17 19:00 19:25 19:31 19:32 Temp 98.1 98.1 Pulse 54 Resp 16 B/P (MAP) 118/75 (89) Pulse Ox 95 97 97 O2 Delivery Room Air Room Air Room Air Room Air 01/19/17 01/19/17 01/19/17 01/20/17 21:44 22:50 23:00 03:00 Temp 98.1 97.9 98.1 97.9 Pulse 53 55 Resp 16 16 16 18 B/P (MAP) 130/75 (93) 132/73 (92) Pulse Ox 95 95 O2 Delivery Room Air Room Air Room Air 01/20/17 01/20/17 01/20/17 01/20/17 03:31 04:31 05:08 05:43 Resp 20 16 16 18 Pulse Ox 95 O2 Delivery BiPAP/CPAP Room Air Room Air Room Air 01/20/17 01/20/17 01/20/17 07:00 08:20 10:22 Temp 97.5 97.5 Pulse 58 Resp 16 12 B/P (MAP) 111/66 (81) Pulse Ox 97 100 95 O2 Delivery Room Air Room Air Room Air GARCIA EPPERSON MD Jan 20, 2017 11:28
--- NOTE | 2017-01-20 11:51 | PDOC ---
IM PROGRESS NOTES- Subjective Subjective Back pain is improving.Had a BM.Still has a lot of rectal pain. Objective Vitals Vital Signs Date Time Temp Pulse Resp B/P (MAP) Pulse Ox O2 Delivery O2 Flow Rate FiO2 01/20/17 11:40 99 Room Air 01/20/17 11:00 97.9 54 16 108/64 (79) 97.9 Physical Exam Physical Exam General appearance - alert,well appearing, and in no distress and oriented to person, place, and time Mental Status - alert, oriented to person, place, and time, affect appropriate to mood Head - normal Chest - clear to auscultation, no wheezes, rales or rhonchi, symmetric air entry Heart - S1 and S2 normal Abdomen - soft, nontender, nondistended, no masses or organomegaly Neurological - alert and oriented Musculoskeletal - wearing a back brace Extremities - no pedal edema Skin - warm and dry Labs Laboratory Tests Test 01/18/17 17:02 01/18/17 20:39 01/19/17 07:52 01/19/17 10:39 Glucose (Fingerstick) 111 mg/dL (70-99) 96 mg/dL (70-99) 87 mg/dL (70-99) 78 mg/dL (70-99) Test 01/19/17 16:45 01/19/17 20:47 01/20/17 07:03 01/20/17 10:56 Glucose (Fingerstick) 107 mg/dL (70-99) 128 mg/dL (70-99) 106 mg/dL (70-99) 92 mg/dL (70-99) Laboratory Tests Test 01/19/17 16:45 01/19/17 20:47 01/20/17 07:03 01/20/17 10:56 Glucose (Fingerstick) 107 mg/dL (70-99) 128 mg/dL (70-99) 106 mg/dL (70-99) 92 mg/dL (70-99) Meds Current Medications Methylprednisolone (Medrol) 4 mg BID PO ; Start 01/23/17 at 09:00; Stop at 21:01 Methylprednisolone (Medrol) 4 mg BIDPCLD PO Last administered on 01/19/17t 18: 21; Start 01/19/17 at 12:30; Stop 01/19/17 at 17:31; Status DC Methylprednisolone (Medrol) 4 mg DAILY PO ; Start 01/24/17 at 09:00; Stop at 09:01 Methylprednisolone (Medrol) 4 mg QIDAFTMEAL PO ; Start 01/21/17 at 09:00; Stop 01/21/17 at 21:01 Methylprednisolone (Medrol) 4 mg TID PO ; Start 01/22/17 at 09:00; Stop at 21:01 Methylprednisolone (Medrol) 4 mg TIDPC PO Last administered on 01/20/17t 10:24 ; Start 01/20/17 at 08:30; Stop 01/20/17 at 17:31 Methylprednisolone (Medrol) 8 mg QHS PO ; Start 01/20/17 at 21:00; Stop at 21:01 Assessment Assessment Problems Medical Problems: (1) Rectal pain Status: Acute FINAL IMPRESSION: 1. Severe painful hemorrhoids. 2. Diabetes. 3. Asthma. 4.Sleep Apnea PLAN:rehab consult dr simmons. started on medrol dose pack, colace for constipation surgery done Operative Note Date 01/17/2017 Preoperative diagnosis: Thrombosed external hemorrhoid Postoperative diagnosis: Same Procedure: Excision of thrombosed hemorrhoid Surgeon: Gama Specimen: Hemorrhoid home tomorrow. cpap mask She had BM.Still has rectal pain. D/w back pain is improving. Discharge when ok with surgery. Discharge Management - 35 minutes. see in 4 days. Plan Plan For more details regarding further plans, please refer to the orders. BHARTI ANDREW MD Jan 20, 2017 11:51
--- NOTE | 2017-01-20 11:52 | DISCH ---
DISCHARGE INSTRUCTIONS Condition on Discharge Condition on Discharge: Stable Activity After Discharge Activity Instructions for Disc: Resume previous activity Diet after Discharge Diet after Discharge: Regular Wound Incision Care Wound Care Equipment: Dressings Contacting the DRJoyce after DC Call your doctor for: Concerns you may have Follow-Up Follow up with: in 4 days.See Surgeon as per their instructions. BHARTI ANDREW MD Jan 20, 2017 11:52
[2017-01-20] MEDS ORDERED: HYDR-2758 PO (12:00)
[2017-01-20] MEDS ORDERED: POLY17PO3 PO (12:00)
[2017-01-20] MEDS ORDERED: SENN-22 PO (12:00)
[2017-01-20] MEDS ORDERED: DOCU-109 PO (12:00)
[2017-01-20] MEDS ORDERED: HYDR25SU4 PR (12:00)
--- NOTE | 2017-01-20 12:02 | PDOC ---
DANIELLE HUNG APRN 01/20/17 1202: SURGICAL PROGRESS NOTE Subjective tolerating diet small stool, worried about discharging prior to good stool output--after hemorrhoidectomy previously became severely constipated Vital Signs Vital Signs Date Time Temp Pulse Resp B/P (MAP) Pulse Ox O2 Delivery O2 Flow Rate FiO2 01/20/17 11:40 99 Room Air 01/20/17 11:00 97.9 54 16 108/64 (79) 97.9 General: Alert, Oriented X3, Cooperative, No acute distress Skin: Other (small amount of rectal drainage, serosang ) Labs Laboratory Tests Test 01/18/17 17:02 01/18/17 20:39 01/19/17 07:52 01/19/17 10:39 Glucose (Fingerstick) 111 mg/dL (70-99) 96 mg/dL (70-99) 87 mg/dL (70-99) 78 mg/dL (70-99) Test 01/19/17 16:45 01/19/17 20:47 01/20/17 07:03 01/20/17 10:56 Glucose (Fingerstick) 107 mg/dL (70-99) 128 mg/dL (70-99) 106 mg/dL (70-99) 92 mg/dL (70-99) Laboratory Tests Test 01/19/17 16:45 01/19/17 20:47 01/20/17 07:03 01/20/17 10:56 Glucose (Fingerstick) 107 mg/dL (70-99) 128 mg/dL (70-99) 106 mg/dL (70-99) 92 mg/dL (70-99) Problem List Problems Medical Problems: (1) Rectal pain Status: Acute Assessment/Plan continue bowel regimen ok to dc from surgical pov Problems: ALESSANDRO RIVERO MD 01/20/17 1514: SURGICAL PROGRESS NOTE Assessment/Plan pt seen as above Problems: DANIELLE HUNG APRN Jan 20, 2017 12:02 ALESSANDRO RIVERO MD Jan 20, 2017 15:14
[2017-01-20 15:00] VITALS: BP 120/79
[2017-01-20] MEDS: HYDROcodone/APAP 5/325MG 1 TAB TABLET PO PRN (16:05)
[2017-01-20] MEDS ORDERED: methylPREDNISolone 4 MG TABLET. PO SCH (21:00)
[2017-01-21] MEDS ORDERED: methylPREDNISolone 4 MG TABLET. PO SCH (09:00)
--- NOTE | 2017-01-21 21:42 | PDOC ---
Provider Note Provider Note Discharge summary dictated. #[id number] JERRELL GOMEZ MD Jan 21, 2017 21:42
--- NOTE | 2017-01-21 23:20 | DS ---
DATE OF DISCHARGE: 01/20/2017 REASON FOR ADMISSION TO THE HOSPITAL: Rectal pain with thrombosed hemorrhoids. CONSULTATIONS: Dr. Gama. Procedure done: Hemorrhoidectomy. Also consultation with Dr. Rojas. HOSPITAL COURSE: The patient is a 36-year-old female who has rectal pain. She had a thrombosed external hemorrhoid and excision of thrombosed hemorrhoid was done. She had lot of pain and had no BM after the surgery. She was given laxatives, pain control and also having some back pain, was seen by Dr. Rojas, was given Solu-Medrol Dosepak, physical therapy. Her condition improved and she was discharged on 01/20/2017. She also has a history of diabetes type 2 and asthma as well as sleep apnea and uses CPAP mask. The patient was discharged home. FOLLOWUP: Follow with PCP in one week. Surgery in two weeks. FINAL DIAGNOSIS: Thrombosed hemorrhoids. The patient underwent hemorrhoidectomy. JERRELL GOMEZ MD DR: ANDRIA/nts JOB#: [id number] / [id number]
[2017-01-22] MEDS ORDERED: methylPREDNISolone 4 MG TABLET. PO SCH (09:00)
[2017-01-23] MEDS ORDERED: methylPREDNISolone 4 MG TABLET. PO SCH (09:00)
[2017-01-24] MEDS ORDERED: methylPREDNISolone 4 MG TABLET. PO SCH (09:00)
== END 2017-01-20 18:20 | disposition home or self-care (01) | DRG 348 ==
LOC: ER 11:18 → ED HOLD 14:55 → 4 NORTH 16:55
PROVIDERS: ADMIT Internal Medicine; ATTEND Internal Medicine
PROC: 06BY0ZC Excision of Hemorrhoidal Plexus, Open Approach (ICD-10-PCS; principal; 2017-01-17 10:30)
DX: K64.5 Perianal venous thrombosis (principal); Z68.42 Body mass index [BMI] 45.0-49.9, adult; E11.9 Type 2 diabetes mellitus without complications; E66.9 Obesity, unspecified; G47.30 Sleep apnea, unspecified; J45.909 Unspecified asthma, uncomplicated; K21.9 Gastro-esophageal reflux disease without esophagitis; K59.00 Constipation, unspecified; S33.8XXA Sprain of other parts of lumbar spine and pelvis, initial encounter; Z82.49 Family history of ischemic heart disease and other diseases of the circulatory system; Z83.3 Family history of diabetes mellitus; F32.9 Major depressive disorder, single episode, unspecified; J40 Bronchitis, not specified as acute or chronic; N83.209 Unspecified ovarian cyst, unspecified side; M54.5 Low back pain
CPT/HCPCS: 36415; 74177; 80048; 80053; 80307; 81001; 81025; 82274; 82962; 83690; 85025; 88304; 90686; 94640; 94760; 96361; 96374; 96375; A4215; G0480; J0690; J0780; J1100; J1170; J1200; J1815; J1885; J2250; J2405; J2704; J3010; J7030; J7509; J7620; J7626; Q9967; 97110; 97530; 99285-25; G0479; J2001

== ENCOUNTER → 2017-07-10 | Day surgery (SDC) | payer BC ==
[~2017-07-10] MED LIST changes: -ALBU8.5H6 INH; -FLUT100D IH; -FOLI1TAB16 PO; +LIDOCAINE 1% PF 2 ML VIAL. ID; -METF500T4 PO; -MOME13HF IH; +MORPHINE SULFATE 2 MG/ML DISP.SYRIN. IV; -NABU750T PO; -OMEP40CA5 PO; +ONDANSETRON PF 4 MG/2 ML VIAL. IV; +PROCHLORPERAZINE 10 MG/2 ML VIAL. IV; +PROPOFOL 20 ML IV; -SERT50TA PO; -TIOT18CA IH; -VENTOLIN HFA18 GM INH; +fentaNYL PF VIAL 100 MCG/2 ML VIAL IV
[2017-07-10] MEDS: IV RINGERS,LACTATED 1000ML 1,000 ML IV (07:00)
[2017-07-10 09:02] LABS: POC GLUCOSE 112 mg/dL (70-99)
[2017-07-10 09:15] LABS: NEG OBC UR NEG; POS OBC UR POS; U PREG PATIENT NEGATIVE (NEG)
== END | disposition home or self-care (01) ==
LOC: SURG 08:37
DX: K21.0 Gastro-esophageal reflux disease with esophagitis (principal); K44.9 Diaphragmatic hernia without obstruction or gangrene; J45.909 Unspecified asthma, uncomplicated; D64.9 Anemia, unspecified; G47.33 Obstructive sleep apnea (adult) (pediatric); D57.3 Sickle-cell trait; E11.9 Type 2 diabetes mellitus without complications; Z98.890 Other specified postprocedural states; Z79.899 Other long term (current) drug therapy; Z79.84 Long term (current) use of oral hypoglycemic drugs
CPT/HCPCS: 43239; 81025; 82962; 88305; J2704

== ENCOUNTER → 2017-07-11 | Outpatient (CLI) | payer BC | END | disposition home or self-care (01) | LOC: KCIC US 07:57 | DX: K76.0 Fatty (change of) liver, not elsewhere classified (principal); R16.0 Hepatomegaly, not elsewhere classified | CPT/HCPCS: 76700 ==

== ENCOUNTER → 2017-07-20 | Outpatient (CLI) | payer BC | END | disposition home or self-care (01) | LOC: NM 11:17 | DX: K31.84 Gastroparesis (principal); K30 Functional dyspepsia | CPT/HCPCS: 78264; A9541 ==

== ENCOUNTER 2019-02-01 13:01 | Emergency (ER) | payer BC ==
[~2019-02-01] VITALS: Ht 175.3 cm; Wt 145.1 kg
[~2019-02-01 13:01] MED LIST changes: +ALBU8.5H6 INH; +DOCU-109 PO; +FLUT100D IH; +FOLI1TAB16 PO; +HYDR-2761 PO; +HYDR25SU4 PR; -LIDOCAINE 1% PF 2 ML VIAL. ID; +METF500T16 PO; +MOME13HF IH; -MORPHINE SULFATE 2 MG/ML DISP.SYRIN. IV; +NABU750T PO; +OMEP40CA45 PO; -ONDANSETRON PF 4 MG/2 ML VIAL. IV; +POLY17PO28 PO; -PROCHLORPERAZINE 10 MG/2 ML VIAL. IV; -PROPOFOL 20 ML IV; +SENN-22 PO; +SERT50TA PO; +TIOT18CA IH; +VENTOLIN HFA18 GM INH; -fentaNYL PF VIAL 100 MCG/2 ML VIAL IV
[2019-02-01 13:10] VITALS: BP 136/89
[2019-02-01] MEDS ORDERED: predniSONE 10 MG TABLET PO ONE (13:30)
[2019-02-01] MEDS ORDERED: ALBUTEROL SULFATE 2.5 MG/3 ML NEBU. NEB ONE (13:30)
--- NOTE | 2019-02-01 13:32 | PHYS DOC ---
Past Medical History Past Medical History: Asthma, Bronchitis, Diabetes-Type II (PHILLIP KHALIL SOFTWARE DEVELOPMENT INTERN) Past Surgical History: Other Additional Past Surgical Histo: Left ovary & fallopian tube, L side cyst removal from ovary, hemorrhroidect (PHILLIP KHALIL APRN) Alcohol Use: Occasionally Drug Use: None (PHILLIP KHALIL APRN) Adult General Chief Complaint Chief Complaint: ASTHMA HPI HPI Patient is a 38 year old female who presents with cough and nasal congestion x 1 week. Soa and chest tightness x 2 days. Patient states she has been using her inhaler with no relief. Denies fevers, nasuea, vomiting, abdominal pain, diarrhea, headache, dizziness, chest pain. Denies pain. (PHILLIP KHALIL APRN) Review of Systems Review of Systems HENT: nasal congestion or denies sore throat [] Respiratory: cough or shortness of breath [] All other systems were reviewed and found to be within normal limits, except as documented in this note. (PHILLIP KHALIL APRN) Current Medications Current Medications Current Medications Medications (Trade) Dose Ordered Sig/Kate Start Time Stop Time Status Last Admin Dose Admin Albuterol Sulfate (Ventolin Neb Soln) 10 mg 1X ONCE 02/01/19 14:15 02/01/19 14:16 DC 02/01/19 14:25 10 MG Prednisone (Prednisone) 50 mg 1X ONCE 02/01/19 13:30 02/01/19 13:31 DC 02/01/19 13:58 50 MG (DIANA THOMAS MD) Allergies Allergies Allergies Coded Allergies Type Severity Reaction Last Updated Verified No Known Drug Allergies 07/10/17 No (DIANA THOMAS MD) Physical Exam Physical Exam Constitutional: Well developed, well nourished, no acute distress, non-toxic appearance. [] HENT: Normocephalic, atraumatic, bilateral external ears normal, oropharynx moist, no oral exudates, nose normal. [] Cardiovascular:Heart rate regular rhythm, no murmur [] Lungs & Thorax: Bilateral breath sounds clear to auscultation [] Abdomen: Bowel sounds normal, soft, no tenderness, no masses, no pulsatile masses. [] Skin: Warm, dry, no erythema, no rash. [] Back: No tenderness, no CVA tenderness. [] Extremities: No tenderness, no cyanosis, no clubbing, ROM intact, no edema. [] Neurologic: Alert and oriented X 3, normal motor function, normal sensory function, no focal deficits noted. [] Psychologic: Affect normal, judgement normal, mood normal. [] (PHILLIP KHALIL APRN) Current Patient Data Vital Signs Vital Signs Date Time Temp Pulse Resp B/P (MAP) Pulse Ox O2 Delivery O2 Flow Rate FiO2 02/01/19 14:29 99 Room Air 02/01/19 13:10 97.9 85 14 136/89 (105) 97.9 (DIANA THOMAS MD) EKG EKG [] (PHILLIP KHALIL APRN) Radiology/Procedures Radiology/Procedures [] (PHILLIP KHALIL APRN) Impressions: [facility] [address] [place] [address] IMAGING REPORT Signed PATIENT: DAVID WINCHESTER ACCOUNT: [id number] : 1980 LOCATION: ER AGE: 38 SEX: F EXAM STATUS: REG ER ORD. PHYSICIAN: PHILLIP KHALIL APRN REASON: soa, cough PROCEDURE: CHEST PA & LATERAL EXAM: Chest, 2 views. HISTORY: Cough. COMPARISON: 12/13/2013. FINDINGS: 2 views of the chest are obtained. There is no infiltrate, pleural effusion or pneumothorax. The heart is normal in size. IMPRESSION: No acute pulmonary finding. Electronically signed by: Jessica Waller MD (02/01/2019 1:46 PM) [facility] DICTATED and SIGNED BY: JESSICA WALLER MD DATE: 02/01/19 1346 (PHILLIP KHALIL APRN) Course & Med Decision Making Course & Med Decision Making Alert and oriented. Speaks in full clear sentences. 98% on room air. Vital signs within normal limits. Skin pink warm and dry. Lungs are clear to auscultation in all lobes. Ambulatory with a steady gait. Denies throat pain or ear pain. No sinus tenderness. PERC negative. Patient states she is feeling no better after the breathing treatment and prednisone. Her lungs remain clear. I have ordered a hour long treatment. Patient states she is feeling much better after hour long treatment. Patient is discharged. (PHILLIP KHALIL APRN) Dragon Disclaimer Dragon Disclaimer This electronic medical record was generated, in whole or in part, using a voice recognition dictation system. (PHILLIP KHALIL APRN) Departure Departure Impression: Primary Impression: Bronchitis Disposition: 01 HOME, SELF-CARE Condition: STABLE Referrals: MILE ROCHE (PCP) Patient Instructions: Asthma, Adult, Bronchitis Additional Instructions: Follow up with primary care provider. Take medications as prescribed. Start the Medrol dose pack tomorrow as you received Prednisone today in the ED. Scripts Albuterol Sulfate (ALBUTEROL SULFATE NEB SOLN) 2.5 Mg/3 Ml Vial.neb 1 VIAL NEB PRN Q4HRS, #50 VIAL Prov: PHILLIP KHALIL APRN 02/01/19 Albuterol Sulfate (PROAIR HFA INHALER) 8.5 Gm Hfa.aer.ad 1 PUFF INH PRN Q6HRS PRN for SHORTNESS OF BREATH, #1 INHALER 0 Refills Prov: PHILLIP KHALIL APRN 02/01/19 Methylprednisolone (MEDROL) 4 Mg Tab.ds.pk 1 PKG PO UD, #1 PKG Prov: PHILLIP KHALIL APRN 02/01/19 Azithromycin (AZITHROMYCIN TABLET) 250 Mg Tablet 1 PKG PO UD for 5 Days, #6 TAB 0 Refills 2 the first day followed by 1 for days 2-5 Prov: PHILLIP KHALIL APRN 02/01/19 Attending Signature I have participated in the care of this patient and I have reviewed and agree with all pertinent clinical information above including history, exam, and recommendations. (DIANA THOMAS MD) PHILLIP KHALIL APRN Feb 01, 2019 13:32 DIANA THOMAS MD Feb 06, 2019 18:15
--- NOTE | 2019-02-01 13:48 | RAD ---
EXAM: Chest, 2 views. HISTORY: Cough. COMPARISON: 12/13/2013. FINDINGS: 2 views of the chest are obtained. There is no infiltrate, pleural effusion or pneumothorax. The heart is normal in size. IMPRESSION: No acute pulmonary finding. Electronically signed by: Jessica Major MD (02/01/2019 1:46 PM) [facility]
[2019-02-01] MEDS ORDERED: AZIT250T6 PO (14:05)
[2019-02-01] MEDS ORDERED: ALBU2.5V8 INH (14:06)
[2019-02-01] MEDS ORDERED: METH4TAB2 PO (14:06)
[2019-02-01] MEDS ORDERED: ALBU2.5V5 NEB (14:12)
[2019-02-01] MEDS ORDERED: ALBUTEROL SULFATE 2.5 MG/3 ML NEBU. CONT NEB ONE (14:15)
== END 2019-02-01 15:30 | disposition home or self-care (01) ==
LOC: ER 13:01
DX: J45.909 Unspecified asthma, uncomplicated (principal); E11.9 Type 2 diabetes mellitus without complications
CPT/HCPCS: 71046; 94640; 94644; 99285; J7512; J7613

== ENCOUNTER → 2019-12-12 | Outpatient (CLI) | payer BC ==
[~2019-12-12] MED LIST changes: +ALBU2.5V5 NEB; +ALBU2.5V8 INH; +AZIT250T6 PO; +METH4TAB2 PO
--- NOTE | 2019-12-12 12:47 | RAD ---
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 There is normal phasicity. Normal compression, color-flow, and augmentation is demonstrated from the right common femoral to the popliteal veins. There is normal color flow of the proximal greater saphenous and profunda femoris veins. There is normal color flow of segments of the calf veins. Impression: 1. There is no evidence of deep venous thrombosis from the right common femoral to the popliteal veins. Electronically signed by: Chencho Pringle MD (12/12/2019 12:44 PM) [id number]
== END | disposition home or self-care (01) ==
LOC: US 11:18
PROVIDERS: ATTEND Internal Medicine
DX: I82.531 Chronic embolism and thrombosis of right popliteal vein (principal); G89.29 Other chronic pain
CPT/HCPCS: 93971

== ENCOUNTER → 2021-04-18 | Outpatient (CLI) | payer BC ==
[~2021-04-18] MED LIST changes: -FLUT100D IH; +FLUT100D2 IH; -NABU750T PO; +NABU750T11 PO; -OMEP40CA45 PO; +OMEP40CA7 PO; -POLY17PO28 PO; +POLY17PO52 PO
--- NOTE | 2021-04-18 13:02 | RAD ---
EXAM: Chest, 2 views. HISTORY: Shortness of air. COMPARISON: None. FINDINGS: 2 views of the chest are obtained. There is no infiltrate, pleural effusion or pneumothorax . The heart is normal in size. IMPRESSION: No acute pulmonary finding. Electronically signed by: Jessica Major MD (04/18/2021 12:59 PM) [id number]
== END ==
LOC: RAD 12:14
PROVIDERS: ATTEND Internal Medicine
DX: U07.1 COVID-19 (principal); R06.02 Shortness of breath
CPT/HCPCS: 71046